=== PATIENT | female | born 1935 | race Caucasian/White ===

== ENCOUNTER 2023-10-23 11:03 | Inpatient (IN) | payer OTHER, SELFPAY ==
[2023-10-23] VITALS (13 sets, daily range): BP systolic 115–177; BP diastolic 74–112; BMI 25.1
[2023-10-23 09:00] LABS: % Basophils 0.5 % (0-2); % Eosinophils 2.8 % (0-6); % Immature Granulocytes 0.8 % (0-0.5); % Lymphocytes 18.7 % (20.5-51.1); % Monocytes 7.2 % (1.7-9.3); Absolute Basophils 0.1 10^3/uL (0-0.2); Absolute Eosinophils 0.3 10^3/uL (0-0.7); Absolute Immature Granulocytes 0.1 10^3/uL (0-0.05); Absolute Lymphocytes 1.8 10^3/uL (1.2-3.4); Absolute Monocytes 0.7 10^3/uL (0.1-0.6); Absolute Neutrophils 6.9 10^3/uL (1.4-6.5); Hemoglobin 11.9 g/dL (12.0-16.0); Mean Corpuscular Hgb 30.7 pg (27.0-31.0); Mean Corpuscular Volume 87.9 fL (81.0-99.0); Mean Platelet Volume 9.4 fL (7.4-10.4); Nucleated Red Blood Cells % 0 %; Platelet Count 254 10^3/uL (130-400); Red Blood Cell Count 3.87 10^6/uL (4.20-5.40); Red Cell Dist. Width 13.2 % (11.5-14.5); White Blood Cell Count 9.9 10^3/uL (4.8-10.8)
--- NOTE | 2023-10-23 09:16 | ED.GENMED ---
History of Present Illness
General
Chief Complaint: Fall
Source: patient and ambulance crew
Exam Limitations: altered mental status
Time Seen by Provider: 10/23/23 08:55
Nursing documentation reviewed up to this point in time: agreed with
Travel History
Have you had any contact with someone who has COVID-19?: No
Do you have any symptoms of coronavirus? Fever > 100 degrees, chills, cough, shortness of breath, sore throat, loss of taste or smell, muscle aches, or headache?: No
History of Present Illness
History of Present Illness:
87-year-old female presents after a fall she has had recurrent falls she lives at a facility apparently had a witnessed fall today in the arms of caregivers no chest pain or shortness of breath does have a headache unsure if she hit her head, also
complaining of back pain which is not a new issue states she fell few days ago and injured her back sounds like she does not get around very well baseline,, she has been using a lot of pain meds she states for her back, looks like she has seizure
disorder hypothyroid GERD
Also complains of some lower extremity edema
Past History
Past History
ED Past Medical History: Other (htn, seizure, herpetic encaphalitis, hypothyroidism)
Social History
Tobacco: Non-smoker
Alcohol: None
Drug: None
Personal:
Living: with family
Employment: Retired
Review of Systems
Review of Systems
All Other Systems: Not applicable
Constitutional: Reports fatigue; Denies fever
EENT: Reports no symptoms
Respiratory: Reports no symptoms
Cardiac: Reports no symptoms
ABD/GI: Reports no symptoms
Musculoskeletal: Reports back pain
Neurological: Reports headache and weakness
Phy Exam
Physical Exam
Physical Exam:
Physical Exam
General: Chronically ill elderly female
Neck: No tongue bite no posterior neck
Heart: Regular
Lungs: no acute respiratory distress. clear bilaterally
Abdomen: Soft nontender
Neuro: Awake alert globally weak
Skin: no rash
Psychiatric: cooperative
Extremities: 1+ edema no pain with range of motion of the hips
Course
Orders/Labs/Results
Orders:
Orders
10/23/23 08:27
Electrocardiogram (*1) Urgent
Reason for Study: Vertigo / Dizzy
10/23/23 08:28
EKG- Treatment ONCE
10/23/23 08:45
Basic Metabolic Panel Urgent
Complete Blood Count/With Diff Urgent
10/23/23 09:05
CT Cervical Spine W/o Iv Contr Urgent
Comment:
Reason For Exam: fall
CT Head W/o Iv Contrast Urgent
Comment:
Reason For Exam: fall
Lumbar Spine, 2 or 3 View [CR Lumbar Spine 2 Or 3 Views] Urgent
Comment:
Reason For Exam: fall
10/23/23 09:07
Comprehensive Metabolic Panel Urgent
Creatine Phosphokinase Urgent
Comment: ADD ON
10/23/23 09:08
Add On- LAB Urgent
Tests Added?: cpk
NT-proBNP Urgent
Comment: ADD ON
Troponin I Urgent
10/23/23 09:22
Add On- LAB Urgent
Tests Added?: pBNP
CR Chest - 2 Views Urgent
Comment:
Reason For Exam: sob
Abnormal Lab Results
10/23/23 10/23/23
08:45 09:08
RBC 3.87 L 10^6/uL
(4.20-5.40)
Hgb 11.9 L g/dL
(12.0-16.0)
Hct 34.0 L %
(37.0-47.0)
Abs Immat Gran (auto) 0.1 H 10^3/uL
(0-0.05)
Absolute Neuts (auto) 6.9 H 10^3/uL
(1.4-6.5)
Absolute Monos (auto) 0.7 H 10^3/uL
(0.1-0.6)
Immature Gran % 0.8 H %
(0-0.5)
Lymphocytes % 18.7 L %
(20.5-51.1)
Sodium 126 L mmol/L
(135-145)
Chloride 96 L mmol/L
(98-107)
Creatinine 0.5 L mg/dL
(0.6-1.0)
Troponin I 0.143 H* ng/ml
10/23/23 08:45
Vital Signs
Initial and Last Documented VS:
Initial Vital Signs
Temp Pulse Resp BP Pulse Ox
98.2 F 90 16 160/99 94
10/23/23 08:23 10/23/23 08:23 10/23/23 08:23 10/23/23 08:23 10/23/23 08:23
Last Documented Vital Signs
Temp Pulse Resp BP Pulse Ox
98.2 F 81 24 171/100 93
10/23/23 08:23 10/23/23 09:30 10/23/23 09:30 10/23/23 09:08 10/23/23 09:30
MDM/Problems Addressed
Differential Diagnosis Includes:
Trip and fall, lumbar compression fracture, electrolyte abnormality UTI anemia rhabdomyolysis deconditioning
MDM/Problems Addressed:
Fall
Chronic conditions affecting care:
Seizure hepatic encephalopathy
Chronic conditions affecting care: Neurological disorder
Acute Exacerbation and/or Progression of Chronic Illness: Neurological disorder
*Radiology
Radiology exam reviewed: preliminary read by ED provider
*Pulse Oximetry
Patient hypoxic: no
*EKG
Interpreted by ED Provider?: Yes
Interpretation: abnormal
Comparison EKG: no comparison EKG present
Heart Rate: 78
Rate: normal
Rhythm: sinus
Ischemia: T-wave inversion (New inferolateral T wave inversion)
*Critical Care Note
Total Time (30-74mins, 75-104mins- exclusive of procedures): 31
Update Note
Update Note:
10 AM labs noted indeterminate troponin in setting of new T wave inversions denies any chest pain suspect she could have some degree of heart failure based on history physical chest x-ray looks like a compression fracture on the lumbar spine
Message sent to cardiology and hospitalist
1015--dw daughter, updated
pt has never seen a cardiology
told she may have pulm HTN
ED Attending Note
-
Portions of this chart may have been created with voice recognition software.� Occasional wrong word or��sound alike� substitutions may have occurred due to the inherent limitations of voice recognition software.
Discharge Plan
Departure
Prescriptions:
No Action
pantoprazole 40 MG tablet,delayed release (DR/EC)
40 mg PO DAILY
levetiracetam 500 MG tablet
1,500 mg PO DAILY
sennosides [senna] 8.6 mg Tablet
17.2 mg PO BID
lidocaine 4 % Adhesive Patch,Medicated
1 patch TOPICAL BID
levetiracetam 500 mg Tablet
2,000 mg PO HS
hydralazine 25 mg Tablet
25 mg PO TID
amlodipine 5 mg Tablet
5 mg PO DAILY
acetaminophen [Tylenol Extra Strength] 500 mg Tablet
1,000 mg PO TID
levothyroxine 25 mcg Tablet
25 mcg PO DAILY
ferrous sulfate 325 mg (65 mg iron) Tablet
325 mg PO DAILY
Referrals:
Tarik Mayo I., DO [Family Provider] -
Interventions
Interventions:
*ED COVID-19 Vaccine History Last Done: 10/23/23 08:24
Discharge Date and Time
Print Language: BURMESE
[2023-10-23 09:18] LABS: Blood Urea Nitrogen 15 mg/dl (7-17); Calcium 9.1 mg/dl (8.4-10.2); Carbon Dioxide 23 mmol/L (22-30); Chloride 96 mmol/L (98-107); Glucose 96 mg/dl (70-99); Sodium 126 mmol/L (135-145); eGFR > 60.00
[2023-10-23 09:49] LABS: Troponin I 0.143 ng/ml
--- NOTE | 2023-10-23 10:10 | HPS.HSE ---
Addendum entered and electronically signed by Noah Sykes MD 10/23/23 18:02:
Abnormal echo r side. Could be explained by ILD but in light of sob decrease mobility and elevated trop will obtain CTA chest r/o PE.
Addendum entered and electronically signed by Noah Sykes MD 10/23/23 11:44:
Correction in the HPI it should read Patient 87 years old female.
Original Note:
Family Physician
-
Family Physician: Tarik Mayo
Chief Complaint
-
Fall
History of Present Illness
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 I spoke with daughter at bedside
and she fills me with most of the information as well. Patient had a witnessed fall today and caregiver was closed by. She had a fall on Thursday and had another fall today. She describes that she was in the edge of the chair today and slid off.
She denies chest pain diaphoresis palpitation syncope near syncope or loss of consciousness. She does have some shortness of breath and it is on chronic over several months but worsening over the last couple weeks. She does have some lower
extremity edema. Denies paroxysmal nocturnal dyspnea or orthopnea. She also has some chronic back pain and it has been getting worse lately and this is currently her main concern today`. Denies radiation of back pain to her legs. Denies fevers
or chills. Denies bladder or urinary incontinence. She has been taking increased amount of pain medications lately. She also denies any tonic-clonic activity, denies tongue biting, denies bowel bladder incontinence. Her typical seizures per her
daughter is usually staring off and not tonic-clonic activity. In the ED, she was found to have elevated troponin 0.143 and EKG that shows new T wave inversions in inferior leads lead III and aVF as well as lateral leads V3 to V6 and normal sinus
rhythm with left anterior fascicular block. No ST elevations. Her sodium was noted to be 126 with a creatinine 0.5. Her hemoglobin 11.9, normal WBC at 9.9, normal platelet count of 254. Chest x-ray, lumbar spine x-ray, CT of the head, CT of the
neck all pending by the time of my evaluation. She was referred to hospitalist for further evaluation.
Medical History
Past Medical History
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
Past Surgical History: Reports None
Social History
Tobacco: Non-smoker
Alcohol: None
Drug: None
Family History
Family History: Not pertinent
Allergies / Home Medications
Allergies reflects when Allergies were last updated in [facility].
Home Medications with original date entered in [facility]
Allergy/Medication List:
Allergies
Allergy/AdvReac Type Severity Reaction Status Date / Time
Iodinated Contrast Media Allergy Intermediate Hives Verified 10/23/23 08:27
erythromycin lactobionate Allergy Mild Rash Verified 10/23/23 08:27
[From Erythrocin]
Penicillins Allergy Rash Verified 10/23/23 08:27
Sulfa (Sulfonamide Allergy Rash Verified 10/23/23 08:27
Antibiotics)
Home Medications
pantoprazole 40 mg tablet,delayed release 40 mg PO DAILY Gastrointestinal issue 05/04/10
levetiracetam 500 mg tablet 1,500 mg PO DAILY Neurological Condition 03/09/19
sennosides 8.6 mg tablet (senna) 17.2 mg PO BID Constipation 06/04/23
acetaminophen 500 mg tablet (Tylenol Extra Strength) 1,000 mg PO TID 10/23/23
amlodipine 5 mg tablet 5 mg PO DAILY 10/23/23
ferrous sulfate 325 mg (65 mg iron) tablet 325 mg PO DAILY 10/23/23
hydralazine 25 mg tablet 25 mg PO TID 10/23/23
levetiracetam 500 mg tablet 2,000 mg PO HS 10/23/23
levothyroxine 25 mcg tablet 25 mcg PO DAILY 10/23/23
lidocaine 4 % topical patch 1 patch topical BID lower back 10/23/23
Review of Systems
-
A 12 point ROS was completed and negative except as noted: Yes
Physical Exam
Vital Signs
Vital Signs
Temp Pulse Resp BP Pulse Ox
98.2 F 81 24 171/100 93
10/23/23 08:23 10/23/23 09:30 10/23/23 09:30 10/23/23 09:08 10/23/23 09:30
Physical exam:
General: Looks chronically ill.
HEENT: Normocephalic, Atraumatic and Moist Mucous Membranes
Respiratory: Few crackles in the bases; Negative Wheezes or Rhonchi
Cardiac: Regular Rhythm and S1/S2
GI: Soft, Nontender and Nondistended
Musculoskeletal: Significant tenderness in the lumbar area midline and flanks, decreased flexion extension as well. No Clubbing, No Cyanosis. Bilateral lower extremity edema
Neuro: Awake, Alert and Oriented
Psych: Calm
Physical Exam
General: Other
Laboratory Results
-
10/23/23 08:45
Laboratory Results
Total Bilirubin Cancelled 10/23/23 08:45
AST Cancelled 10/23/23 08:45
ALT Cancelled 10/23/23 08:45
Alkaline Phosphatase Cancelled 10/23/23 08:45
Troponin I 0.143 ng/ml H* 10/23/23 09:08
Impression/Plan
-
IMPRESSION:
Patient 87 years old female with history of hypertension, seizure disorder, among other medical problems presented to the hospital with recurrent falls. She was found to have elevated troponin most likely elevated troponin due to non-ischemic
myocardial injury but needs to rule out acute coronary syndrome with silent ischemia especially in the setting of new EKG changes compared to prior EKGs. Patient also has worsening hyponatremia. She also has shortness of breath acute on chronic.
She also has back pain acute on chronic. Due to her acute presentation and multiple comorbidities she is at increased risk of morbidity and mortality so she will need to be treated in the hospital for further management and evaluation and monitor
for progress and or toxicity.
PLAN:
Fall and ambulatory dysfunction:
Check orthostatic
CT of the head and neck pending
Keep cardiac monitoring
PT OT eval
human services manager consult
Elevated troponin:
Elevated troponin due to non-ischemic myocardial injury versus acute coronary syndrome versus heart failure related
Trend cardiac enzymes until it peaks
Seen and reviewed and interpreted by myself twelve-lead EKG with normal sinus rhythm at 88 bpm, left anterior fascicular block, T wave inversion in inferior leads lead III and aVF, T wave inversion also in anterior lateral leads V3 to V6. Compared
to prior EKG these T wave inversions are new.
Cardiac monitoring
Plan for echocardiogram
Cardiology consult for further evaluation
Hyponatremia:
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
Her sodium 126 today but she does run low chronic sodium typically in the mid 120s based on review of records
Check urine sodium, urine osmolality, serum osmolarity, TSH, and cortisol levels.
Start with fluid restriction for now <50 ounces/day and reevaluate after rest of the workup.
Repeat sodium this afternoon and if stable then tomorrow, otherwise more often if the opposite
Monitor sodium closely
Shortness of breath-Concerns for acute congestive heart failure, unknown type:
BNP elevated at 6280
Per family she also has some underlying pulmonary fibrosis and that could also explain to some degree her shortness of breath
Lasix 40 mg IV x 1 and reeval if needs more diuretics.
Plan for echocardiogram
Cardiology eval
Monitor strict I/O
Monitor daily weight
Monitor renal function and electrolytes
Fluid restriction
Salt restriction
Heart failure education
Follow up clinical response
Acute on chronic back pain:
Rule out compression fracture
Pain control including Tylenol, lidocaine patch, Dilaudid as needed.
Bowel regimen
X-ray of the back pending
Hypertension, uncontrolled:
Continue home antihypertensives including amlodipine 5 mg daily hydralazine 25 mg 3 times daily
Suspect pain will exacerbate her blood pressure so we will give Labetalol x1 now and then add IV hydralazine as needed
Monitor blood pressure and adjust medications accordingly
Anemia:
Appears to be at baseline with hemoglobin 11.9 today
Seizures:
Continue AED, levetiracetam home doses
Seizures precaution
Hypothyroidism:
Continue home doses of thyroid medications, levothyroxine 25 mcg p.o.
Update TSH
GERD:
Continue PPI orally
DVT prophylaxis:
Lovenox 40 mg SQ daily
CODE STATUS:
DNR. Confirmed with daughter at bedside and she will bring a copy of her living will down the road.
Total time spent on today's encounter was 75 minutes which included time spent in counseling the patient/family regarding diagnosis and treatment plan as listed above, goals of care, and symptom management. Case was discussed with nursing staff,
specialists, and care coordinators/case management. All labs and imaging personally reviewed by me. Remainder the time spent in detailed review of previous records, lab data, imaging, and other medical provider documentation.
[2023-10-23] MEDS: LOW STRENGTH ASPIRIN 324 MG PO (10:33)
[2023-10-23] MEDS: TYLENOL 650 MG PO (10:33)
--- NOTE | 2023-10-23 10:42 | EDRN ---
Dr. Sykes in room w/ pt at this time.
[2023-10-23 10:54] LABS: NT-proBNP 6280 pg/ml
[2023-10-23 11:11] LABS: ALT (SGPT) 18 U/L (0-35); AST (SGOT) 29 U/L (14-36); Albumin 4.2 g/dl (3.5-5.0); Alkaline Phosphatase 75 U/L (38-126); Blood Urea Nitrogen 14 mg/dl (7-17); Carbon Dioxide 22 mmol/L (22-30); Chloride 97 mmol/L (98-107); Creatine Phosphokinase 84 U/L (30-135); Glucose 100 mg/dl (70-99); Potassium 4.5 mmol/L (3.5-5.1); Sodium 126 mmol/L (135-145); Total Bilirubin 0.7 mg/dl (0.2-1.3); Total Protein 6.7 g/dl (6.3-8.2); eGFR > 60.00
--- NOTE | 2023-10-23 11:26 | CON.CAR ---
Addendum entered and electronically signed by Nacho Denton MD 10/23/23 15:02:
I saw and examined the patient.
The BAG MENDER's note was reviewed and I agree with the note.
87-year-old woman who resides at [facility] who has a history of pulmonary fibrosis, hypertension, seizures who slid off her chair and sustained a fall. ECG has some nonspecific T wave abnormality in addition initial troponin was mildly elevated at
0.14. Patient without complaints of chest pain no complaints of increased shortness of breath. Patient clearly reports that she slid off the chair without syncope. Currently in no distress. Follow-up troponin is trending down. Patient
significantly hypertensive on presentation this is now improved. Exact cause of troponin elevation not clear. May be nonischemic myocardial injury in the setting of severe hypertension.
-Monitor on telemetry
-Serial troponins
-Echo.
-Continue monitoring and treatment of hypertension. Blood pressure significantly improved compared to initial presentation
Original Note:
Consultation
Consultation Request
Date/Time Consultation Requested: 10/23/23 11:15a
Date/Time Consultation Performed: 10/23/23 11:30a
Requesting Provider: Dr. Sykes
Performing Provider: KWAKU Layton for Dr. Denton
Reason for Consultation: abnormal EKG/troponin
Medical History
-
Chief Complaint: fall
History of Present Illness:
Mrs. Al is an 87 yo female with HTN, seizures, hypothyroidism, hyponatremia, GERD, and pulmonary fibrosis, who presents to the ER after a fall witnessed by a staff member at the [facility]. She denies any cardiac symptoms prior to the fall.
She claims she was sitting on the arm of the chair and it 'wasn't big enough for me'm so she slid off/fell to the ground. Patient's daughter Lorie is at the bedside as well and states last hospitalization she was diagnosed with severe pulmonary
fibrosis (new) and they have not yet seen pulmonary as an outpatient. She has been c/o worsen SOB for months and noticed LE edema yesterday at routine PCP visit. She is admitted to the hospitalist service and we are consulted for abn EKG with new
T wave inversions lateral leads V3-V6, aVF in NSR and LAFB. Troponin 0.143, she denies any chest pain or SOB at rest. Her complaint now is back pain.
Past Medical History
Past Medical History: Other (as above)
Past Surgical History: None
Social History
Tobacco: Non-Smoker
Alcohol: None
Personal:
Living: Assisted
Employment: Retired
Family History
Family History: Reviewed & Not Pertinent
Allergies / Home Medications
Allergy/AdvReac Type Severity Reaction Status Date / Time
Iodinated Contrast Media Allergy Intermediate Hives Verified 10/23/23 08:27
erythromycin lactobionate Allergy Mild Rash Verified 10/23/23 08:27
[From Erythrocin]
Penicillins Allergy Rash Verified 10/23/23 08:27
Sulfa (Sulfonamide Allergy Rash Verified 10/23/23 08:27
Antibiotics)
�Medication �Instructions �Recorded �Confirmed �Type
pantoprazole 40 mg tablet,delayed 40 mg PO DAILY Gastrointestinal 05/04/10 10/23/23 History
release issue
levetiracetam 500 mg tablet 1,500 mg PO DAILY Neurological 03/09/19 10/23/23 History
Condition
sennosides 8.6 mg tablet (senna) 17.2 mg PO BID Constipation 06/04/23 10/23/23 History
acetaminophen 500 mg tablet 1,000 mg PO TID Pain 10/23/23 10/23/23 History
(Tylenol Extra Strength)
amlodipine 5 mg tablet 5 mg PO DAILY Blood Pressure 10/23/23 10/23/23 History
ferrous sulfate 325 mg (65 mg 325 mg PO DAILY Supplement 10/23/23 10/23/23 History
iron) tablet
hydralazine 25 mg tablet 25 mg PO TID Blood Pressure 10/23/23 10/23/23 History
levetiracetam 500 mg tablet 2,000 mg PO HS Seizures 10/23/23 10/23/23 History
levothyroxine 25 mcg tablet 25 mcg PO DAILY Thyroid 10/23/23 10/23/23 History
lidocaine 4 % topical patch 1 patch topical BID lower back pain 10/23/23 10/23/23 History
Review of Systems
-
History Source: Patient
All other systems: Negative unless noted
Physical Exam
Vital Signs
Temp Pulse Resp BP Pulse Ox
98.2 F 81 24 171/100 93
10/23/23 08:23 10/23/23 09:30 10/23/23 09:30 10/23/23 09:08 10/23/23 09:30
Lab Results
10/23/23 08:45
Troponin I 0.143 ng/ml H* 10/23/23 09:08
Jru-O-Vbuxtaremfs Pept 6280 pg/ml 10/23/23 09:08
Physical Exam
General: Other (elderly, frail)
HEENT: Normocephalic
Respiratory: Clear (diminished bases) and Non Labored Respirations
Cardiac: S1/S2, Regular Rhythm and Peripheral Edema (trace b/l )
Breast: Deferred by me
GI: Soft, Non Tender, Non Distended and Normal Bowel Sounds
Rectal: Deferred by Provider
Genito-urinary: No Costovertebral Tender
Musculoskeletal: No Clubbing, No Cyanosis and No Edema
Skin: Warm and Dry
Neuro: AO x 3
Psych: Calm
Impression / Plan
-
Non-ischemic myocardial injury - acute in the setting of fall and hypertensive urgency.
- initial troponin 0.143, trend to peak.
- denies chest pain.
- abnormal EKG with T wave inversions V3-V6 and aVL.
- check echo.
HTN - elevated on arrival.
- continue Hydralazine and titrate as needed.
Fall - recurrent.
- daughter Lorei states she fell last week also.
Pulmonary fibrosis - severe according to daughter Lorie, this is a new diagnosis from recent hospitalization.
- mild CHF as well, check echo for etiology.
Seizures - stable on meds, continue.
Hyponatremia - acute on chronic.
- per primary.
Data Reviewed
-
EKG: Tracing Personally Visualized and interpreted (NSR new T wave inversions lateral leads V3-V6, aVF, and LAFB)
Radiology: Image Personally Visualized and interpreted
Labs: Labs Reviewed by me
Old Records: Reviewed
[2023-10-23] MEDS: LIDOCAINE 4% PATCH 1 PATCH TOPICAL (12:42)
[2023-10-23] MEDS: DILAUDID 0.25 MG IV (12:43)
[2023-10-23] MEDS: LASIX 40 MG IV (12:43)
[2023-10-23] MEDS: SENOKOT-S 1 TABLET PO ×2 (12:43→22:33)
[2023-10-23] MEDS: TRANDATE 10 MG IV (12:44)
[2023-10-23 13:02] LABS: Troponin I 0.107 ng/ml
[2023-10-23 13:12] LABS: Osmolality Serum 263 mOsm/kg (275-300)
[2023-10-23 15:53] LABS: Blood Urea Nitrogen 12 mg/dl (7-17); Calcium 8.7 mg/dl (8.4-10.2); Carbon Dioxide 18 mmol/L (22-30); Chloride 97 mmol/L (98-107); Estimated Creatinine Clearance 55 ml/min; Glucose 120 mg/dl (70-99); Potassium 3.6 mmol/L (3.5-5.1); Sodium 125 mmol/L (135-145); eGFR > 60.00
[2023-10-23] MEDS: FEOSOL PO (18:26)
[2023-10-23] MEDS: NORVASC PO (18:26)
[2023-10-23] MEDS: KEPPRA PO (18:26)
[2023-10-23] MEDS: PROTONIX PO (18:27)
[2023-10-23] MEDS: APRESOLINE 25 MG PO ×2 (18:27→22:33)
[2023-10-23] MEDS: LOVENOX 40 MG SC (18:27)
[2023-10-23] MEDS: SYNTHROID PO (18:27)
[2023-10-23 20:25] LABS: Troponin I 0.086 ng/ml
[2023-10-23] MEDS: KEPPRA 2000 MG PO (22:35)
[2023-10-23] MEDS: BENADRYL 50 MG IV (22:47)
[2023-10-23] MEDS: SOLU-CORTEF 200 MG IV (22:48)
[2023-10-24] VITALS (11 sets, daily range): BP systolic 114–160; BP diastolic 69–107; PULSE 84–105; O2SAT 93; BMI 22.7
[2023-10-24 04:38] LABS: Blood Urea Nitrogen 15 mg/dl (7-17); Carbon Dioxide 18 mmol/L (22-30); Chloride 97 mmol/L (98-107); Estimated Creatinine Clearance 55 ml/min; Glucose 132 mg/dl (70-99); Sodium 126 mmol/L (135-145); eGFR > 60.00
[2023-10-24 04:44] LABS: Troponin I 0.055 ng/ml
[2023-10-24 05:09] LABS: TSH Reflex To Free T4 1.59 uIU/ml (0.47-4.68)
[2023-10-24 05:51] LABS: Cortisol, Random > 123.0 ug/dl
[2023-10-24] MEDS: SYNTHROID 25 MCG PO (06:16)
[2023-10-24] MEDS: TYLENOL 650 MG PO ×2 (06:20→22:03)
[2023-10-24 08:30] LABS: Hematocrit 34.1 % (37.0-47.0); Hemoglobin 12.1 g/dL (12.0-16.0); Mean Corp Hgb Conc. 35.5 g/dL (33.0-37.0); Mean Corpuscular Hgb 31.2 pg (27.0-31.0); Mean Corpuscular Volume 87.9 fL (81.0-99.0); Mean Platelet Volume 9.8 fL (7.4-10.4); Platelet Count 262 10^3/uL (130-400); Red Blood Cell Count 3.88 10^6/uL (4.20-5.40); Red Cell Dist. Width 13.1 % (11.5-14.5); White Blood Cell Count 9.2 10^3/uL (4.8-10.8)
[2023-10-24] MEDS: SENOKOT-S 1 TABLET PO ×2 (08:45→21:59)
[2023-10-24] MEDS: PROTONIX 40 MG PO (08:45)
[2023-10-24] MEDS: APRESOLINE 25 MG PO ×3 (08:45→21:59)
[2023-10-24] MEDS: KEPPRA 1500 MG PO (08:46)
[2023-10-24] MEDS: NORVASC 5 MG PO (08:46)
[2023-10-24] MEDS: FEOSOL 325 MG PO (08:46)
[2023-10-24] MEDS: LIDOCAINE 4% PATCH 1 PATCH TOPICAL (08:47)
--- NOTE | 2023-10-24 09:47 | W.PN.HOSP.TC ---
Addendum entered and electronically signed by Rickie David DO 10/24/23 11:18:
Informed by nurse that patient's pulse ox dropped to 85% on room air with ambulation with physical therapy, improved to 92% within 1 minute of resting.
Original Note:
Today's Communication/Plan
-
PT/OT
Urine studies
Fluid restriction
Compression stockings
Assessment / Plan
Assessment / Plan
Gen-AAOx3, NAD
HEENT-NC, AT, anicteric, clear oral mm
Neck-supple
CV-reg, no M, +S1/S2
Lungs-clear B/L
Abd-soft, NT, ND
Ext-no edema
Musculoskeletal-no cyanosis, clubbing
Skin-warm and dry
Neuro-grossly non-focal
Psych-calm, cooperative
Acute hypoxic respiratory insufficiency - oxygenation stable on room air. Etiology of shortness of breath unclear, but CT chest ruled out pulmonary embolism. Did show dilated main pulmonary outflow tract suggestive of pulmonary artery
hypertension. UIP pattern of interstitial fibrosis noted. Question of mild interstitial edema. Stable diffuse ectasia of the thoracic aorta.
Echocardiogram shows LVEF 65 to 70%, no regional wall motion abnormalities, enlarged RV size with moderately reduced RV systolic function, mild to moderate MR, mild AR, mild to moderate TR. 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
Suspect valvular heart disease may be contributing to at least some of her shortness of breath. Pulmonary hypertension also contributing. Currently not requiring oxygen. Check ambulatory pulse ox on room air with physical therapy.
Recurrent falls/ambulatory dysfunction -likely multifactorial etiology for falling including deconditioning, frailty, orthostasis, etc.
Await PT/OT.
Orthostatic hypotension -compression stockings ordered.
Multiple vertebral compression fractures - suspect due to falls and underlying osteoporosis. T9 compression deformity noted on CT scan. L1 and L2 chronic compression deformities noted on x-ray.
Essential hypertension with hypertensive urgency -blood pressure improving now.
Troponin elevation -suspect acute nonischemic myocardial injury due to uncontrolled blood pressure. Troponins trended down. Echocardiogram without wall motion abnormality. Does show findings of pulmonary hypertension. Cardiology input noted.
Chronic hyponatremia -unclear etiology. Sodium appears to usually run in the 120 range. She is asymptomatic from a hyponatremia standpoint. TSH normal. Cortisol likely falsely elevated due to IV hydrocortisone administration in preparation for
IV contrast. Check urine studies. Fluid restrict at 40 ounces daily.
Seizure disorder -continue meds.
Hypothyroidism - continue Synthroid.
History of herpes encephalitis
GERD
DNR
Dispo -she lives in [place]. Disposition will depend on her progress with PT and OT.
Anticipated Discharge: 24 - 48 hours
Subjective/Interval History
-
Date of Service: October 24, 2023
Patient seen and examined. Eating breakfast. Complaining of feeling cold.
Objective Data
-
Labs:
Laboratory Results
10/24/23 10/24/23
04:06 07:32
WBC 9.2
Hgb 12.1
Hct 34.1 L
Plt Count 262
Sodium 126 L
Potassium 4.0
Chloride 97 L
Carbon Dioxide 18 L
BUN 15
Creatinine 0.5 L
Glucose 132 H
Calcium 9.0
Vital Signs:
Vital Signs
Temp Pulse Resp BP Pulse Ox
98 F 84 22 132/90 96
10/24/23 08:38 10/24/23 08:46 10/24/23 08:38 10/24/23 08:46 10/24/23 08:38
Review of Systems
-
History Source: Patient
All other systems: Reviewed and negative
--- NOTE | 2023-10-24 11:12 | PTCARENOTE ---
Patient dyspneic on exertion to BR, 85% on RA. Recovered to 92% with in 1 minute. Made physician aware.
[2023-10-24] MEDS: LASIX 40 MG IV (11:46)
[2023-10-24] MEDS: MIRALAX 17 GRAMS PO (11:46)
--- NOTE | 2023-10-24 12:08 | CM ---
Addendum entered by Thom Montague 10/24/23 14:37:
PT and OT evaluations noted - SNF level of care recommended.
CM discussed it with pt and her daughter and [facility] preferred. A referral to [facility] made.
D/C plan: [facility].
Original Note:
CM following re: discharge planning.
Reviewed pt's chart, met with pt and spoke to pt's daughter Marylou .
Pt is an 87 year old female, admitted with primary dx of Acute hypoxic respiratory insufficiency.
pt reports she lives at [facility], has supportive daughter and 4 sons, ambulates with a walker at baseline. Pt reports she was in a few SNFs in the past, known to [facility].
PT and OT will evaluate the pt to determine a level of care at discharge.
PCP: Tarik Mayo.
Pharmacy: [facility]
D/C plan; return maged to her living arrangements at [facility] with [facility]. PT and OT will evaluate
CM will follow with discharge plan updates as hospitalization progresses
[2023-10-24 13:06] LABS: Osmolality Urine 478 mOsm/kg (300-900)
[2023-10-24 13:12] LABS: Urine Sodium 72 mmol/L (30-90)
--- NOTE | 2023-10-24 13:22 | W.PN.CD ---
Today's Communication / Plan
-
Patient appears hemodynamically stable. Respiratory status appears stable. Fine crackles on exam which are likely related to underlying pulmonary fibrosis
Interstitial edema cannot be excluded on chest x-ray patient has received additional diuretics from hospitalist. Continue to assess response. No additional testing or changes in medical therapy recommended at this time
Impression / Plan
-
Non-ischemic myocardial injury - acute in the setting of fall and hypertensive urgency.
- initial troponin 0.143, trend to peak.
- denies chest pain.
- abnormal EKG with T wave inversions V3-V6 and aVL.
-Echo with preserved left ventricular function. Some suggestion of RV dilation. Which may be related to underlying pulmonary disease/pulmonary fibrosis.
HTN - elevated on arrival. Now appears stable. Continue current therapy.
Fall - recurrent.
- daughter Lorie states she fell last week also.
Pulmonary fibrosis - severe according to daughter Lorie, this is a new diagnosis from recent hospitalization.
- mild CHF as well, check echo for etiology.
Seizures - stable on meds, continue.
Hyponatremia - acute on chronic.
- per primary.
Physical Exam
Vital Signs/Labs
Vital Signs
Temp Pulse Resp BP Pulse Ox
97.5 F 94 20 114/72 95
10/24/23 12:45 10/24/23 12:45 10/24/23 12:45 10/24/23 12:45 10/24/23 12:45
10/23/23 10/24/23 10/25/23
06:59 06:59 06:59
Actual Weight 58.117 kg
10/24/23 07:32
10/24/23 04:06
10/23/23
09:08
Xhq-V-Hyvyaukpdxz Pept 6280
LAB Results
10/23/23 10/23/23 10/23/23
09:08 12:24 19:43
Troponin I 0.143 H* 0.107 H* D 0.086 H*
10/24/23
04:06
Troponin I 0.055 H*
Physical Exam
Constitutional: No acute distress and Other (Comfortable in chair.)
Cardiovascular: Rhythm & rate is regular
Respiratory: Other (Fine crackles at bases)
GI: Soft and Non tender
Neuro/Psych: Alert
Data Reviewed
-
Date of Service: October 24, 2023
Medical Decision Making: Reviewed Test Results
Echo: Report Reviewed by me
X-Ray/CT/US/MRI/NUC/PET: Report Reviewed by me
Labs: Labs Reviewed by me
--- NOTE | 2023-10-24 14:54 | PTCARENOTE ---
Patient with intermittent bouts of tachycardia 140-150. Patient is asymptomatic, just sitting in chair. Physician made aware.
[2023-10-24] MEDS: LOVENOX 40 MG SC (17:03)
[2023-10-24] MEDS: REFRESH EYE DROPS (PF) 1 DROPS OPHTH (17:43)
[2023-10-24] MEDS: KEPPRA 2000 MG PO (22:00)
[2023-10-25] VITALS (7 sets, daily range): BP systolic 82–156; BP diastolic 52–99; PULSE 77–104; BMI 23.1
[2023-10-25] MEDS: SYNTHROID 25 MCG PO (05:58)
[2023-10-25] MEDS: TYLENOL 650 MG PO ×3 (06:15→21:27)
[2023-10-25 07:33] LABS: Blood Urea Nitrogen 21 mg/dl (7-17); Calcium 9.4 mg/dl (8.4-10.2); Carbon Dioxide 21 mmol/L (22-30); Chloride 94 mmol/L (98-107); Estimated Creatinine Clearance 55 ml/min; Glucose 95 mg/dl (70-99); Potassium 4.1 mmol/L (3.5-5.1); Sodium 127 mmol/L (135-145); eGFR > 60.00
[2023-10-25] MEDS: APRESOLINE 25 MG PO ×2 (08:43→16:20)
[2023-10-25] MEDS: FEOSOL 325 MG PO (08:43)
[2023-10-25] MEDS: NORVASC 5 MG PO (08:43)
[2023-10-25] MEDS: PROTONIX 40 MG PO (08:43)
[2023-10-25] MEDS: SENOKOT-S 1 TABLET PO ×2 (08:43→21:27)
[2023-10-25] MEDS: LIDOCAINE 4% PATCH 1 PATCH TOPICAL (08:44)
[2023-10-25] MEDS: KEPPRA 1500 MG PO (08:44)
--- NOTE | 2023-10-25 13:06 | W.PN.HOSP.TC ---
Today's Communication/Plan
-
Bowel regimen
Fluid restriction
Continue PT
Assessment / Plan
Assessment / Plan
Gen-AAOx3, NAD
HEENT-NC, AT, anicteric, clear oral mm
Neck-supple
CV-reg, no M, +S1/S2
Lungs-clear B/L
Abd-soft, NT, ND
Ext-no edema
Musculoskeletal-no cyanosis, clubbing
Skin-warm and dry
Neuro-grossly non-focal
Psych-calm, cooperative
Acute hypoxic respiratory insufficiency - oxygenation stable on room air. Etiology of shortness of breath possibly due to interstitial lung disease. CT chest showed dilated main pulmonary outflow tract suggestive of pulmonary artery hypertension.
UIP pattern of interstitial fibrosis noted. Question of mild interstitial edema. Stable diffuse ectasia of the thoracic aorta.
Echocardiogram shows LVEF 65 to 70%, no regional wall motion abnormalities, enlarged RV size with moderately reduced RV systolic function, mild to moderate MR, mild AR, mild to moderate TR. 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 BNP 6280. She
received Lasix on Thursday and Thursday. Hold further Lasix as I am not convinced she has heart failure.
Suspect valvular heart disease may be contributing to at least some of her shortness of breath. Pulmonary hypertension also contributing.
Pulse ox dropped to 85% on room air with ambulation yesterday, improved to 92% within 1 minute. Anticipate she will need oxygen on discharge.
Recurrent falls/ambulatory dysfunction -likely multifactorial etiology for falling including deconditioning, frailty, orthostasis, etc.
Orthostatic hypotension -compression stockings ordered.
Multiple vertebral compression fractures - suspect due to falls and underlying osteoporosis. T9 compression deformity noted on CT scan. L1 and L2 chronic compression deformities noted on x-ray.
Essential hypertension with hypertensive urgency -blood pressure improving now.
Troponin elevation -suspect acute nonischemic myocardial injury due to uncontrolled blood pressure. Troponins trended down. Echocardiogram without wall motion abnormality. Does show findings of pulmonary hypertension. Cardiology input noted.
Chronic hyponatremia -unclear etiology. Sodium appears to usually run in the 120 range. She is asymptomatic from a hyponatremia standpoint. TSH normal. Cortisol likely falsely elevated due to IV hydrocortisone administration in preparation for
IV contrast. Check urine studies. Fluid restrict at 40 ounces daily.
Chronic constipation -change bowel meds to standing orders. No bowel movement so far in the hospital.
Seizure disorder -continue meds.
Hypothyroidism - continue Synthroid.
History of herpes encephalitis
GERD
DNR
Dispo -she lives in [place] but will need to go to SNF. Anticipate [facility] once we have insurance approval. Informed case management. Likely can be discharged on Thursday if bed available in rehab.
Updated daughter on the phone. All questions answered.
Anticipated Discharge: Within 24 hours
Subjective/Interval History
-
Date of Service: October 25, 2023
Patient seen and examined. No complaints. Eating lunch.
Objective Data
-
Labs:
Laboratory Results
10/25/23
06:17
Sodium 127 L
Potassium 4.1
Chloride 94 L
Carbon Dioxide 21 L
BUN 21 H
Creatinine 0.6
Glucose 95
Calcium 9.4
Vital Signs:
Vital Signs
Temp Pulse Resp BP Pulse Ox
98.0 F 92 16 134/89 96
10/25/23 11:46 10/25/23 11:46 10/25/23 11:46 10/25/23 11:46 10/25/23 11:46
I&O
10/24/23 10/25/23 10/26/23
06:59 06:59 06:59
Intake Total 620 / 620 270 / 270
Output Total 150 / 150
Balance 470 / 470 270 / 270
Review of Systems
-
History Source: Patient
All other systems: Reviewed and negative
--- NOTE | 2023-10-25 13:52 | W.PN.CD ---
Today's Communication / Plan
-
Although proBNP is elevated patient does not appear to have clear evidence of volume overload. Difficulty use lung exam in this patient who has pulmonary fibrosis. Respiratory status is stable appears comfortable seated in chair and does not
appear to have significant edema. Would keep I's and O's even at this point
no addtional testing at this time
call if addtional assistance required
Impression / Plan
-
Non-ischemic myocardial injury - acute in the setting of fall and hypertensive urgency.
- initial troponin 0.143, trend to peak.
- denies chest pain.
- abnormal EKG with T wave inversions V3-V6 and aVL.
-Echo with preserved left ventricular function. Some suggestion of RV dilation. Which may be related to underlying pulmonary disease/pulmonary fibrosis.
HTN - elevated on arrival. Now appears stable. Continue current therapy.
Fall - recurrent.
- daughter Lorie states she fell last week also.
Pulmonary fibrosis - severe according to daughter Lorie, this is a new diagnosis from recent hospitalization.
- Although proBNP is elevated patient does not appear to have clear evidence of volume overload. Difficulty use lung exam in this patient who has pulmonary fibrosis. Respiratory status is stable appears comfortable seated in chair and does not
appear to have significant edema. Would keep I's and O's even at this point
Seizures - stable on meds, continue.
Hyponatremia - acute on chronic.
- per primary.
Physical Exam
Vital Signs/Labs
Vital Signs
Temp Pulse Resp BP Pulse Ox
98.0 F 92 16 134/89 96
10/25/23 11:46 10/25/23 11:46 10/25/23 11:46 10/25/23 11:46 10/25/23 11:46
10/24/23 10/25/23 10/26/23
06:59 06:59 06:59
Actual Weight 58.117 kg 59.052 kg
10/24/23 07:32
10/25/23 06:17
10/23/23
09:08
Xox-E-Qfldaflaeri Pept 6280
LAB Results
10/23/23 10/23/23 10/23/23
09:08 12:24 19:43
Troponin I 0.143 H* 0.107 H* D 0.086 H*
10/24/23
04:06
Troponin I 0.055 H*
Physical Exam
Constitutional: No acute distress
Cardiovascular: Rhythm & rate is regular
Respiratory: Other (Few fine crackles at bases no wheezes or rhonchi. Patient breathing comfortably in chair on room air)
GI: Soft
Neuro/Psych: Alert
Data Reviewed
-
Date of Service: October 25, 2023
EKG: Report Reviewed by me
[2023-10-25] MEDS: DULCOLAX 10 MG RECTAL (13:57)
[2023-10-25] MEDS: MIRALAX 17 GRAMS PO (13:58)
[2023-10-25] MEDS: ULTRAM 50 MG PO (16:19)
[2023-10-25] MEDS: LOVENOX 40 MG SC (17:11)
[2023-10-25] MEDS: APRESOLINE PO (21:25)
[2023-10-25] MEDS: KEPPRA 2000 MG PO (21:27)
[2023-10-26] VITALS (8 sets, daily range): BP systolic 93–181; BP diastolic 60–113; PULSE 88–100; BMI 23.3
[2023-10-26] MEDS: SYNTHROID 25 MCG PO (05:16)
--- NOTE | 2023-10-26 08:49 | W.PN.HOSP.TC ---
Today's Communication/Plan
-
Monitor sodium. Nephrology eval.
Assessment / Plan
Assessment / Plan
Gen-AAOx3, NAD
HEENT-NC, AT, anicteric, clear oral mm
Neck-supple
CV-reg, no M, +S1/S2
Lungs-clear B/L
Abd-soft, NT, ND
Ext-no edema
Musculoskeletal-no cyanosis, clubbing
Skin-warm and dry
Neuro-grossly non-focal
Psych-calm, cooperative
A/P:
Acute hypoxic respiratory insufficiency - oxygenation stable on room air. Etiology of shortness of breath possibly due to interstitial lung disease. CT chest showed dilated main pulmonary outflow tract suggestive of pulmonary artery hypertension.
UIP pattern of interstitial fibrosis noted. Question of mild interstitial edema. Stable diffuse ectasia of the thoracic aorta.
Echocardiogram shows LVEF 65 to 70%, no regional wall motion abnormalities, enlarged RV size with moderately reduced RV systolic function, mild to moderate MR, mild AR, mild to moderate TR. 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 BNP 6280. She
received Lasix on Thursday and Thursday. Hold further Lasix as I am not convinced she has heart failure.
Suspect valvular heart disease may be contributing to at least some of her shortness of breath. Pulmonary hypertension also contributing.
Pulse ox dropped to 85% on room air with ambulation yesterday, improved to 92% within 1 minute. Anticipate she will need oxygen on discharge. Daughter asked about pulmonary evaluation and we went over possible outpatient or inpatient but
ultimately decided to have them evaluate her since she has not seen any urban gardening specialist since possible diagnosis.
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 Sodium appears to usually run in the 120 range. She is asymptomatic from a hyponatremia standpoint. TSH normal. Cortisol
likely falsely elevated due to IV hydrocortisone administration in preparation for IV contrast. Check urine studies. Fluid restrict at 40 ounces daily. Today sodium got worse so we will request nephrology evaluation. Might need to start
diuretics or consider [place]. Not ready for discharge due to worsening sodium.
Recurrent falls/ambulatory dysfunction -likely multifactorial etiology for falling including deconditioning, frailty, orthostasis, etc.
Orthostatic hypotension -compression stockings ordered. Continue to check orthostatics.
Multiple vertebral compression fractures - suspect due to falls and underlying osteoporosis. T9 compression deformity noted on CT scan. L1 and L2 chronic compression deformities noted on x-ray.
Essential hypertension with hypertensive urgency -blood pressure improving now. Would allow permissive hypertension if it comes to that point due to orthostatic.
Troponin elevation -suspect acute nonischemic myocardial injury due to uncontrolled blood pressure. Troponins trended down. Echocardiogram without wall motion abnormality. Does show findings of pulmonary hypertension. Cardiology input noted.
Chronic constipation -change bowel meds to standing orders. No bowel movement so far in the hospital.
Seizure disorder -continue meds.
Hypothyroidism - continue Synthroid.
History of herpes encephalitis
GERD
DNR
Dispo -she lives in [place] but will need to go to SNF. Anticipate [facility] once we have insurance approval. Informed case management.
Updated daughter on the phone. All questions answered.
Total time spent on today's encounter was 52 minutes which included time spent in counseling the patient/family regarding diagnosis and treatment plan as listed above, goals of care, and symptom management. Case was discussed with nursing staff,
specialists, and care coordinators/case management. All labs and imaging personally reviewed by me. Remainder the time spent in detailed review of previous records, lab data, imaging, and other medical provider documentation.
Anticipated Discharge: 24 - 48 hours
Subjective/Interval History
-
Date of Service: October 26, 2023
Patient complains of dizziness. Denies worsening shortness of breath or chest pain.
Objective Data
-
Labs:
Laboratory Results
10/26/23
08:33
Sodium Pending
Potassium Pending
Chloride Pending
Carbon Dioxide Pending
BUN Pending
Creatinine Pending
Glucose Pending
Calcium Pending
Vital Signs:
Vital Signs
Temp Pulse Resp BP Pulse Ox
97.8 F 80 16 146/101 96
10/26/23 07:54 10/26/23 07:54 10/26/23 07:54 10/26/23 07:54 10/26/23 07:54
I&O
10/25/23 10/26/23 10/27/23
06:59 06:59 06:59
Intake Total 620 / 620 770 / 770
Output Total 150 / 150
Balance 470 / 470 770 / 770
Review of Systems
-
All other systems: Reviewed and negative
[2023-10-26] MEDS: SENOKOT-S 1 TABLET PO ×2 (09:31→20:53)
[2023-10-26] MEDS: MIRALAX 17 GRAMS PO (09:31)
[2023-10-26] MEDS: KEPPRA 1500 MG PO (09:31)
[2023-10-26] MEDS: PROTONIX 40 MG PO (09:31)
[2023-10-26] MEDS: FEOSOL 325 MG PO (09:32)
[2023-10-26] MEDS: LIDOCAINE 4% PATCH 1 PATCH TOPICAL (09:32)
[2023-10-26] MEDS: APRESOLINE 25 MG PO ×3 (09:32→23:51)
[2023-10-26] MEDS: NORVASC 5 MG PO (09:32)
[2023-10-26 10:03] LABS: Blood Urea Nitrogen 28 mg/dl (7-17); Calcium 9.4 mg/dl (8.4-10.2); Carbon Dioxide 19 mmol/L (22-30); Chloride 93 mmol/L (98-107); Estimated Creatinine Clearance 47 ml/min; Glucose 93 mg/dl (70-99); Potassium 4.2 mmol/L (3.5-5.1); Sodium 123 mmol/L (135-145); eGFR > 60.00
--- NOTE | 2023-10-26 11:31 | PTCARENOTE ---
refused to lay down for full orthostatic vital sign; was only able to obtain sitting and standing
--- NOTE | 2023-10-26 11:36 | CM ---
Patient seen bedside.
OOB in chair with therapy.
Patient was orthostatic with standing today.
Continue to monitor sodium.
Patient would like [facility] when stable, will need insurance auth.
Plan: skilled rehab when medically stable, bed available and auth obtained.
--- NOTE | 2023-10-26 14:01 | CON.PUL ---
Consultation
Consultation Request
Date/Time Consultation Requested: 10/26/2023
Date/Time Consultation Performed: 10/26/2023
Requesting Provider: Dr. Sykes
Performing Provider: Dr. Arcadio Funk
Reason for Consultation: Abnormal CT chest-interstitial lung disease
Medical History
-
History of Present Illness:
87-year-old woman with history of hypertension, seizure disorders, prior herpes encephalitis, chronic hyponatremia, orthostatic hypotension, GERD admitted to the hospital due to a fall.
She was found to have slightly increased troponins upon admission to the emergency room. Sodium down to 126. Initially also found to be increasingly hypertensive.
Cardiology evaluated the patient given increased troponins and proBNP.
Repeat echocardiogram during this admission showed preserved ejection fraction. RV dilatation.
We were consulted due to underlying pulmonary fibrosis which is a new diagnosis for patient during recent hospital stay.
Has not seen pulmonary in the outpatient setting.
Per daughter patient is very limited. Ambulates with a walker. Complains of shortness of breath.
Past Medical History
Past Medical History: Other (See assessment and plan section)
Social History
Tobacco: Non-smoker
Alcohol: None
Drug: None
Living: With Family
Occupational Exposures: Denies
Environmental Exposures: Denies
Family History
Family History: Reviewed & Not Pertinent
Allergies / Home Medications
Allergies
Allergy/AdvReac Type Severity Reaction Status Date / Time
erythromycin lactobionate Allergy Rash Verified 10/23/23 20:05
[From Erythrocin]
Iodinated Contrast Media Allergy Hives Verified 10/23/23 20:05
Penicillins Allergy Rash Verified 10/23/23 08:27
Sulfa (Sulfonamide Allergy Rash Verified 10/23/23 08:27
Antibiotics)
Home Medications
�Medication �Instructions �Recorded �Confirmed �Last Taken �Type
pantoprazole 40 mg tablet,delayed 40 mg PO DAILY Gastrointestinal 05/04/10 10/23/23 06/03/23 History
release issue
levetiracetam 500 mg tablet 1,500 mg PO DAILY Neurological 03/09/19 10/23/23 06/04/23 08:00 History
Condition
sennosides 8.6 mg tablet (senna) 17.2 mg PO BID Constipation 06/04/23 10/23/23 06/04/23 08:00 History
acetaminophen 500 mg tablet 1,000 mg PO TID Pain 10/23/23 10/23/23 Unknown History
(Tylenol Extra Strength)
amlodipine 5 mg tablet 5 mg PO DAILY Blood Pressure 10/23/23 10/23/23 Unknown History
ferrous sulfate 325 mg (65 mg 325 mg PO DAILY Supplement 10/23/23 10/23/23 Unknown History
iron) tablet
hydralazine 25 mg tablet 25 mg PO TID Blood Pressure 10/23/23 10/23/23 Unknown History
levetiracetam 500 mg tablet 2,000 mg PO HS Seizures 10/23/23 10/23/23 Unknown History
levothyroxine 25 mcg tablet 25 mcg PO DAILY Thyroid 10/23/23 10/23/23 Unknown History
lidocaine 4 % topical patch 1 patch topical BID lower back pain 10/23/23 10/23/23 Unknown History
Review of Systems
-
History Source: Patient
All other systems: Negative unless noted
Vitals / Labs / Diagnostic Testing
Vital Signs
Temp Pulse Resp BP Pulse Ox
97.9 F 88 18 123/70 96
10/26/23 11:31 10/26/23 11:31 10/26/23 11:31 10/26/23 11:31 10/26/23 11:31
Lab Data
10/24/23 07:32
10/26/23 08:33
Diagnostic Testing:
Physical Exam
-
HEENT: Normocephalic
Cardiovascular: S1/S2
Respiratory: Rales (Bibasilar)
GI: Soft and Non Distended
Neurology: Awake, Alert, AO x 3 and No Motor Deficits
Skin: Warm
General: Respiratory Distress (n)
Assessment
-
Abnormal CT chest-Interstitial lung disease/pulmonary fibrosis
CT chest 10/24/2023: Reviewed,
Limited by respiratory motion degradation. No filling defect to suggest pulmonary embolism with confidence to the proximal segmental branches. If indicated, further evaluation/follow-up may be considered with repeat angiography.
Stable dilated main pulmonary outflow tract suggesting an element of pulmonary artery hypertension.
UIP pattern of interstitial fibrosis.
The possibility of mild interstitial edema cannot be entirely excluded in the proper clinical setting.
Stable diffuse ectasia of the thoracic aorta.
Interval development of moderate T9 compression deformity.
Pulmonary hypertension: Likely due to underlying lung disease. 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
Doubt pulmonary arterial component.
Conditions present prior admission:
Essential hypertension
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
Hypothyroidism
GERD
History of vasovagal syncope
Prior TIA echocardiogram
Echocardiogram 10/23/2023: Reviewed, showed ejection fraction 65-70%. No regional wall motion abnormalities.
Enlarged right ventricular size. Moderate reduced right ventricular systolic function. Mild to moderate MR. Mild AR. Mild to moderate TR. Estimated pulmonary pressure 40 to 45 mmHg.
Plan recommendations:
CT of the chest reviewed, chronic changes noted, usual interstitial pneumonia pattern.
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
Other differential diagnosis may include connective tissue disease associated ILD, less likely hypersensitivity pneumonitis.
Patient denies any occupational or environmental exposures.
There is no history of medications known to cause pulmonary fibrosis.
-
Pulmonary hypertension may be due to underlying pulmonary disease.
In reviewing prior imaging in 2013, CT abdomen pelvis lung cuts show some degree of pulmonary fibrosis.
Has been progressing over the last 10 years slowly.
-
I recommend home oxygen assessment before discharge
Will need outpatient ILD serology evaluation.
-
Will need to consider Antifibrotic therapy, this will need to be discussed in the outpatient setting.
There is no role for steroids as there is no groundglass opacities on CAT scan.
While in the hospital no additional recommendations.
Home oxygen assessment prior to discharge.
-
Outpatient pulmonary follow-up recommended after discharge.
Dr. Funk updated daughter over the phone 10/26/2023.
--- NOTE | 2023-10-26 16:15 | W.CON.NEPH ---
Consultation
-
Date/Time Consultation Requested: October 26, 2023 11 AM
Date/Time Consultation Performed: October 26, 2023 12 PM
Requesting Provider: Dr. Sykes
Performing Provider: Dr. Wiggins
Reason for Consultation: Hyponatremia
Medical History
-
Chief Complaint: Hyponatremia
History of Present Illness:
This is an 87-year-old female with seizure disorder controlled with Keppra, chronic hyponatremia with sodium levels running around 130 at baseline. She also has orthostatic hypotension on hydralazine 3 times daily. Patient had a witnessed fall as
well as recent falls prior to that. She denies any diaphoresis or palpitations with these episodes. She also reports some mild shortness of breath as well as some mild lower extremity edema. Due to these several issues she was brought to the
emergency room. She was also found to have slightly elevated troponin at the time of admission. Her sodium level initially 126 has dropped to 123 for which we are asked to assist with management of.
Past Medical History
Hypertension, seizure disorder, herpes encephalitis, chronic hyponatremia, hypothyroidism, orthostatic hypotension, GERD
Social History
Tobacco: Non-Smoker
Alcohol: None
Family History
No CKD
Allergies / Home Medications
Allergy/AdvReac Type Severity Reaction Status Date / Time
erythromycin lactobionate Allergy Rash Verified 10/23/23 20:05
[From Erythrocin]
Iodinated Contrast Media Allergy Hives Verified 10/23/23 20:05
Penicillins Allergy Rash Verified 10/23/23 08:27
Sulfa (Sulfonamide Allergy Rash Verified 10/23/23 08:27
Antibiotics)
�Medication �Instructions �Recorded �Confirmed �Type
pantoprazole 40 mg tablet,delayed 40 mg PO DAILY Gastrointestinal 05/04/10 10/23/23 History
release issue
levetiracetam 500 mg tablet 1,500 mg PO DAILY Neurological 03/09/19 10/23/23 History
Condition
sennosides 8.6 mg tablet (senna) 17.2 mg PO BID Constipation 06/04/23 10/23/23 History
acetaminophen 500 mg tablet 1,000 mg PO TID Pain 10/23/23 10/23/23 History
(Tylenol Extra Strength)
amlodipine 5 mg tablet 5 mg PO DAILY Blood Pressure 10/23/23 10/23/23 History
ferrous sulfate 325 mg (65 mg 325 mg PO DAILY Supplement 10/23/23 10/23/23 History
iron) tablet
hydralazine 25 mg tablet 25 mg PO TID Blood Pressure 10/23/23 10/23/23 History
levetiracetam 500 mg tablet 2,000 mg PO HS Seizures 10/23/23 10/23/23 History
levothyroxine 25 mcg tablet 25 mcg PO DAILY Thyroid 10/23/23 10/23/23 History
lidocaine 4 % topical patch 1 patch topical BID lower back pain 10/23/23 10/23/23 History
Review of Systems
-
No current chest pain or shortness of breath. She does not have much of an appetite. She denies swelling. She denies issues with urination. The remainder of the complete review of systems was negative
Physical Exam
Vital Signs
Vital Signs
Temp Pulse Resp BP Pulse Ox
98.9 F 113 16 111/78 93
10/26/23 16:10 10/26/23 16:10 10/26/23 16:10 10/26/23 16:10 10/26/23 16:10
Lab Results
WBC 9.2 10^3/uL (4.8-10.8) 10/24/23 07:32
RBC 3.88 10^6/uL (4.20-5.40) L 10/24/23 07:32
Hgb 12.1 g/dL (12.0-16.0) 10/24/23 07:32
Hct 34.1 % (37.0-47.0) L 10/24/23 07:32
Plt Count 262 10^3/uL (130-400) 10/24/23 07:32
Sodium 123 mmol/L (135-145) L 10/26/23 08:33
Potassium 4.2 mmol/L (3.5-5.1) 10/26/23 08:33
Chloride 93 mmol/L (98-107) L 10/26/23 08:33
Carbon Dioxide 19 mmol/L (22-30) L 10/26/23 08:33
BUN 28 mg/dl (7-17) H 10/26/23 08:33
Creatinine 0.7 mg/dL (0.6-1.0) 10/26/23 08:33
eGFR > 60.00 10/26/23 08:33
Glucose 93 mg/dl (70-99) 10/26/23 08:33
Calcium 9.4 mg/dl (8.4-10.2) 10/26/23 08:33
Cbz-P-Ikytqeeonob Pept 6280 pg/ml 10/23/23 09:08
Albumin 4.2 g/dl (3.5-5.0) 10/23/23 10:35
Physical Exam
Patient is awake alert oriented and in no distress. Mood and affect were pleasant, insight and judgment were good. Pupils are equal round and reactive to light, extraocular movements are intact, sclera were anicteric. Hearing was normal, ears and
nose are intact. Neck was supple with trachea midline and no thyromegaly. Heart was regular rate and rhythm without rubs. Lower extremities with minimal edema. Lungs were clear to auscultation bilaterally and with normal excursion. Abdomen was soft,
nontender, with normal active bowel sounds, and no hepatosplenomegaly. Skin was without rash and with normal turgor.
Data Reviewed
-
Radiology: Image Personally Visualized and interpreted (CT chest PE protocol on October 24, 2023 shows a history of fibrosis T9 compression fracture no PE)
Medical Tests (Nuc Med, Echo etc): Image Personally Visualized and interpreted (Chest x-ray on October 23, 2023 by my reading shows low lung volumes with mild interstitial fibrosis; EKG on 10/24/2023 by my reading shows sinus tachycardia left axis
deviation nonspecific T wave abnormalities)
Labs: Labs Reviewed by me (Sodium 123, potassium 4.2, creatinine 0.7, bicarbonate 19)
Old Records: Reviewed (On October 29, 2022 sodium 130, on July 03, 2023 sodium 127)
Assessment/Plan
-
Assessment:
Interstitial fibrosis/interstitial lung disease
Pulmonary artery hypertension
Acute on chronic hyponatremia
Orthostatic hypotension
T9 compression fracture
Elevated troponin
Seizure disorder
Plan:
Her urine osmolality was 478 with a urine sodium level of 172.
I have added Lasix 20 mg daily
Follow BMP
May consider additional salt tablets if needed
[2023-10-26] MEDS: LASIX 20 MG PO (16:22)
--- NOTE | 2023-10-26 17:00 | PTCARENOTE ---
Patient reports mild dizziness with standing today.
[2023-10-26] MEDS: LOVENOX 40 MG SC (17:53)
[2023-10-26] MEDS: TYLENOL 650 MG PO (20:55)
[2023-10-26] MEDS: ULTRAM 50 MG PO (23:50)
[2023-10-26] MEDS: KEPPRA 2000 MG PO (23:51)
[2023-10-27] VITALS (8 sets, daily range): BP systolic 102–156; BP diastolic 69–94; PULSE 77–94; BMI 23.4
[2023-10-27] MEDS: TYLENOL 650 MG PO ×2 (04:29→19:47)
[2023-10-27] MEDS: SYNTHROID 25 MCG PO (05:03)
--- NOTE | 2023-10-27 08:51 | W.PN.HOSP.TC ---
Today's Communication/Plan
-
Samsca. Monitor sodium. PT reeval
Assessment / Plan
Assessment / Plan
Gen-AAOx3, NAD
HEENT-NC, AT, anicteric, clear oral mm
Neck-supple
CV-reg, no M, +S1/S2
Lungs-clear B/L
Abd-soft, NT, ND
Ext-no edema
Musculoskeletal-no cyanosis, clubbing
Skin-warm and dry
Neuro-grossly non-focal
Psych-calm, cooperative
A/P:
Acute hypoxic respiratory insufficiency - oxygenation stable on room air. Etiology of shortness of breath possibly due to interstitial lung disease. CT chest showed dilated main pulmonary outflow tract suggestive of pulmonary artery hypertension.
UIP pattern of interstitial fibrosis noted. Question of mild interstitial edema. Stable diffuse ectasia of the thoracic aorta.
Echocardiogram shows LVEF 65 to 70%, no regional wall motion abnormalities, enlarged RV size with moderately reduced RV systolic function, mild to moderate MR, mild AR, mild to moderate TR. 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 BNP 6280. She
received Lasix on Thursday and Thursday. Hold further Lasix as I am not convinced she has heart failure.
Suspect valvular heart disease may be contributing to at least some of her shortness of breath. Pulmonary hypertension also contributing.
Pulse ox dropped to 85% on room air with ambulation yesterday, improved to 92% within 1 minute. Anticipate she will need oxygen on discharge. Daughter asked about pulmonary evaluation and we went over possible outpatient or inpatient but
ultimately decided to have them evaluate her since she has not seen any foreign broadcast specialist since possible diagnosis. Appreciated pulmonary input.
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 Sodium appears to usually run in the 120 range. She is asymptomatic from a hyponatremia standpoint. TSH normal. Cortisol
likely falsely elevated due to IV hydrocortisone administration in preparation for IV contrast. Checked urine studies. Fluid restrict at 40 ounces daily.
See below:
Yesterday-->sodium got worse so we will request nephrology evaluation. Might need to start diuretics or consider Samsca. Nephrology started her on Lasix 20 mg daily.
Today---> nephrology starting Samsca today 10/26. Monitor sodium after medication. Not ready for discharge due to worsening sodium.
Recurrent falls/ambulatory dysfunction -likely multifactorial etiology for falling including deconditioning, frailty, orthostasis, etc.
Orthostatic hypotension -compression stockings ordered. Continue to check orthostatics.
Multiple vertebral compression fractures - suspect due to falls and underlying osteoporosis. T9 compression deformity noted on CT scan. L1 and L2 chronic compression deformities noted on x-ray.
Essential hypertension with hypertensive urgency -blood pressure improving now. Would allow permissive hypertension if it comes to that point due to orthostatic.
Troponin elevation -suspect acute nonischemic myocardial injury due to uncontrolled blood pressure. Troponins trended down. Echocardiogram without wall motion abnormality. Does show findings of pulmonary hypertension. Cardiology input noted.
Chronic constipation -change bowel meds to standing orders. No bowel movement so far in the hospital.
Seizure disorder -continue meds.
Hypothyroidism - continue Synthroid.
History of herpes encephalitis
GERD
DNR
Dispo -she lives in [place] but will need to go to SNF. Anticipate [facility] once we have insurance approval. Informed case management.
Updated daughter on the phone yesterday. All questions answered.
Anticipated Discharge: 24 - 48 hours
Subjective/Interval History
-
Date of Service: October 27, 2023
Patient denies any new complaints. Generalized weakness present. No chest pain
Objective Data
-
Labs:
Laboratory Results
10/27/23
07:34
Sodium Pending
Potassium Pending
Chloride Pending
Carbon Dioxide Pending
BUN Pending
Creatinine Pending
Glucose Pending
Calcium Pending
Vital Signs:
Vital Signs
Temp Pulse Resp BP Pulse Ox
97.6 F 72 16 156/89 96
10/27/23 08:03 10/27/23 08:03 10/27/23 08:03 10/27/23 08:03 10/27/23 08:03
I&O
10/26/23 10/27/23 10/28/23
06:59 06:59 06:59
Intake Total 770 / 770 1220 / 1220
Balance 770 / 770 1220 / 1220
[2023-10-27] MEDS: MIRALAX 17 GRAMS PO (09:13)
[2023-10-27] MEDS: APRESOLINE 25 MG PO ×3 (09:13→22:12)
[2023-10-27] MEDS: PROTONIX 40 MG PO (09:14)
[2023-10-27] MEDS: SENOKOT-S 1 TABLET PO ×2 (09:14→19:47)
[2023-10-27] MEDS: NORVASC 5 MG PO (09:14)
[2023-10-27] MEDS: LIDOCAINE 4% PATCH 1 PATCH TOPICAL (09:14)
[2023-10-27] MEDS: LASIX 20 MG PO (09:14)
[2023-10-27] MEDS: FEOSOL 325 MG PO (09:15)
[2023-10-27] MEDS: KEPPRA 1500 MG PO (09:15)
[2023-10-27] MEDS: ULTRAM 50 MG PO ×2 (09:16→16:36)
[2023-10-27 09:24] LABS: Blood Urea Nitrogen 26 mg/dl (7-17); Calcium 8.5 mg/dl (8.4-10.2); Carbon Dioxide 21 mmol/L (22-30); Chloride 93 mmol/L (98-107); Estimated Creatinine Clearance 47 ml/min; Glucose 82 mg/dl (70-99); Potassium 4.2 mmol/L (3.5-5.1); Sodium 122 mmol/L (135-145); eGFR > 60.00
--- NOTE | 2023-10-27 11:30 | W.PN.NEPH.PH ---
Today's Communication / Plan
-
samsca
Assessment/Plan
-
Assessment:
Interstitial fibrosis/interstitial lung disease
Pulmonary artery hypertension
Acute on chronic hyponatremia
Orthostatic hypotension
T9 compression fracture
Elevated troponin
Seizure disorder
Plan:
Her urine osmolality was 478 with a urine sodium level of 172.
continue Lasix 20 mg daily
Follow BMP
May consider addition of salt tablets if needed
samsca today
-
-
Date of Service: October 27, 2023
CC / HPI / ROS
-
Chief Complaint:
hyponatremia
History of Present Illness:
Na low at 122
BP stable/high
eating well
oxygenation stable
Review of Systems:
no CP/SOB
Labs
-
Labs:
WBC 9.2 10^3/uL (4.8-10.8) 10/24/23 07:32
RBC 3.88 10^6/uL (4.20-5.40) L 10/24/23 07:32
Hgb 12.1 g/dL (12.0-16.0) 10/24/23 07:32
Hct 34.1 % (37.0-47.0) L 10/24/23 07:32
Plt Count 262 10^3/uL (130-400) 10/24/23 07:32
Sodium 122 mmol/L (135-145) L 10/27/23 07:34
Potassium 4.2 mmol/L (3.5-5.1) 10/27/23 07:34
Chloride 93 mmol/L (98-107) L 10/27/23 07:34
Carbon Dioxide 21 mmol/L (22-30) L 10/27/23 07:34
BUN 26 mg/dl (7-17) H 10/27/23 07:34
Creatinine 0.7 mg/dL (0.6-1.0) 10/27/23 07:34
eGFR > 60.00 10/27/23 07:34
Glucose 82 mg/dl (70-99) 10/27/23 07:34
Calcium 8.5 mg/dl (8.4-10.2) 10/27/23 07:34
Ozj-X-Ohbohbakrvb Pept 6280 pg/ml 10/23/23 09:08
Albumin 4.2 g/dl (3.5-5.0) 10/23/23 10:35
Physical Exam
-
Vital Signs:
Vital Signs
Temp Pulse Resp BP Pulse Ox
97.6 F 72 16 156/89 96
10/27/23 08:03 10/27/23 08:03 10/27/23 08:03 10/27/23 08:03 10/27/23 08:03
Cardiovascular:: Regular rate and rhythm
Respiratory:: Bilateral: Coarse
Lung Excursion:: Normal
Abdomen:: Nontender and Soft
Bowel Sounds:: Normal
Extremity Edema:: +2: Bilateral:
[2023-10-27] MEDS: SAMSCA 7.5 MG PO (11:50)
--- NOTE | 2023-10-27 11:58 | CM ---
Addendum entered by Carla Garrett 10/27/23 15:47:
PT recommending skilled rehab.
Original Note:
Patient seen bedside.
Continue to monitor sodium, 122 today.
Patient would like [facility] when stable, will need insurance auth.
Plan: skilled rehab when medically stable, bed available and auth obtained.
[2023-10-27] MEDS: LOVENOX 40 MG SC (17:04)
[2023-10-27] MEDS: KEPPRA 2000 MG PO (22:12)
[2023-10-28] VITALS (8 sets, daily range): BP systolic 114–171; BP diastolic 72–113; PULSE 80–106; BMI 24.0
[2023-10-28] MEDS: ULTRAM 50 MG PO (04:05)
[2023-10-28] MEDS: SYNTHROID 25 MCG PO (06:16)
[2023-10-28] MEDS: TYLENOL 650 MG PO ×3 (06:18→22:59)
[2023-10-28 09:41] LABS: Blood Urea Nitrogen 23 mg/dl (7-17); Calcium 8.8 mg/dl (8.4-10.2); Carbon Dioxide 21 mmol/L (22-30); Chloride 92 mmol/L (98-107); Estimated Creatinine Clearance 47 ml/min; Glucose 85 mg/dl (70-99); Potassium 4.6 mmol/L (3.5-5.1); Sodium 120 mmol/L (135-145); eGFR > 60.00
--- NOTE | 2023-10-28 09:42 | W.PN.HOSP.TC ---
Today's Communication/Plan
-
Discharge once nephrology cleared her from hyponatremia standpoint.
Assessment / Plan
Assessment / Plan
Gen-AAOx3, NAD
HEENT-NC, AT, anicteric, clear oral mm
Neck-supple
CV-reg, no M, +S1/S2
Lungs-clear B/L
Abd-soft, NT, ND
Ext-no edema
Musculoskeletal-no cyanosis, clubbing
Skin-warm and dry
Neuro-grossly non-focal
Psych-calm, cooperative
A/P:
Acute hypoxic respiratory insufficiency - oxygenation stable on room air. Etiology of shortness of breath possibly due to interstitial lung disease. CT chest showed dilated main pulmonary outflow tract suggestive of pulmonary artery hypertension.
UIP pattern of interstitial fibrosis noted. Question of mild interstitial edema. Stable diffuse ectasia of the thoracic aorta.
Echocardiogram shows LVEF 65 to 70%, no regional wall motion abnormalities, enlarged RV size with moderately reduced RV systolic function, mild to moderate MR, mild AR, mild to moderate TR. 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 BNP 6280. She
received Lasix on Thursday and Thursday. Hold further Lasix as I am not convinced she has heart failure.
Suspect valvular heart disease may be contributing to at least some of her shortness of breath. Pulmonary hypertension also contributing.
Pulse ox dropped to 85% on room air with ambulation yesterday, improved to 92% within 1 minute. Anticipate she will need oxygen on discharge. Daughter asked about pulmonary evaluation and we went over possible outpatient or inpatient but
ultimately decided to have them evaluate her since she has not seen any dairy specialist since possible diagnosis. Appreciated pulmonary input.
Discharge planning-->once nephrology cleared her from hyponatremia standpoint.
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 Sodium appears to usually run in the 120 range. She is asymptomatic from a hyponatremia standpoint. TSH normal. Cortisol
likely falsely elevated due to IV hydrocortisone administration in preparation for IV contrast. Checked urine studies. Fluid restrict at 40 ounces daily.
See below:
10/25-->sodium got worse so we will request nephrology evaluation. Might need to start diuretics or consider Samsca. Nephrology started her on Lasix 20 mg daily.
10/26---> nephrology starting Samsca today 10/26. Monitor sodium after medication. Not ready for discharge due to worsening sodium.
10/27---> sodium got worse despite Samsca down to 120. Nephrology started her on 3% saline today.
Recurrent falls/ambulatory dysfunction -likely multifactorial etiology for falling including deconditioning, frailty, orthostasis, etc.
Orthostatic hypotension -compression stockings ordered. Continue to check orthostatics.
Multiple vertebral compression fractures - suspect due to falls and underlying osteoporosis. T9 compression deformity noted on CT scan. L1 and L2 chronic compression deformities noted on x-ray.
Essential hypertension with hypertensive urgency -blood pressure improving now. Would allow permissive hypertension if it comes to that point due to orthostatic.
Troponin elevation -suspect acute nonischemic myocardial injury due to uncontrolled blood pressure. Troponins trended down. Echocardiogram without wall motion abnormality. Does show findings of pulmonary hypertension. Cardiology input noted.
Chronic constipation -change bowel meds to standing orders. No bowel movement so far in the hospital.
Seizure disorder -continue meds.
Hypothyroidism - continue Synthroid.
History of herpes encephalitis
GERD
DNR
Dispo -she lives in [place] but will need to go to SNF. Anticipate [facility] once we have insurance approval. Informed case management.
Updated daughter on the phone prior.
Anticipated Discharge: 24 - 48 hours
Subjective/Interval History
-
Date of Service: October 28, 2023
Patient with some generalized weakness and dizziness. No chest pain or shortness of breath.
Objective Data
-
Labs:
Laboratory Results
10/28/23
06:59
Sodium 120 L
Potassium 4.6
Chloride 92 L
Carbon Dioxide 21 L
BUN 23 H
Creatinine 0.7
Glucose 85
Calcium 8.8
Vital Signs:
Vital Signs
Temp Pulse Resp BP Pulse Ox
97.7 F 74 16 150/95 94
10/28/23 07:59 10/28/23 07:59 10/28/23 07:59 10/28/23 07:59 10/28/23 07:59
I&O
10/27/23 10/28/23 10/29/23
06:59 06:59 06:59
Intake Total 1220 / 1220 1140 / 1140
Balance 1220 / 1220 1140 / 1140
[2023-10-28] MEDS: NORVASC 5 MG PO (09:46)
[2023-10-28] MEDS: FEOSOL 325 MG PO (09:47)
[2023-10-28] MEDS: LASIX 20 MG PO (09:47)
[2023-10-28] MEDS: SENOKOT-S 1 TABLET PO ×2 (09:47→20:47)
[2023-10-28] MEDS: KEPPRA 1500 MG PO (09:47)
[2023-10-28] MEDS: PROTONIX 40 MG PO (09:47)
[2023-10-28] MEDS: APRESOLINE 25 MG PO ×3 (09:47→23:29)
[2023-10-28] MEDS: LIDOCAINE 4% PATCH 1 PATCH TOPICAL (09:48)
[2023-10-28] MEDS: MIRALAX PO ×2 (09:48→12:43)
--- NOTE | 2023-10-28 11:42 | W.PN.NEPH.PH ---
Today's Communication / Plan
-
3% saline
Maintain Lasix and fluid restrict
Recheck electrolytes later this afternoon
Assessment/Plan
-
Assessment:
Interstitial fibrosis/interstitial lung disease
Pulmonary artery hypertension
Acute on chronic hyponatremia
Orthostatic hypotension
T9 compression fracture
Elevated troponin
Seizure disorder
Plan:
Her urine osmolality was 478 with a urine sodium level of 172.
continue Lasix 20 mg daily
Follow BMP
Samsca provided 7.5 mg yesterday without change in sodium as sodium dropped to 120
Will provide 3% saline
Maintain strict fluid restriction: Patient not likely compliant per discussion with nursing
-
-
Date of Service: October 28, 2023
CC / HPI / ROS
-
Chief Complaint:
hyponatremia
History of Present Illness:
Na low at 120
BP stable/high
eating well
oxygenation stable
Review of Systems:
no CP/SOB
Labs
-
Labs:
WBC 9.2 10^3/uL (4.8-10.8) 10/24/23 07:32
RBC 3.88 10^6/uL (4.20-5.40) L 10/24/23 07:32
Hgb 12.1 g/dL (12.0-16.0) 10/24/23 07:32
Hct 34.1 % (37.0-47.0) L 10/24/23 07:32
Plt Count 262 10^3/uL (130-400) 10/24/23 07:32
Sodium 120 mmol/L (135-145) L 10/28/23 06:59
Potassium 4.6 mmol/L (3.5-5.1) 10/28/23 06:59
Chloride 92 mmol/L (98-107) L 10/28/23 06:59
Carbon Dioxide 21 mmol/L (22-30) L 10/28/23 06:59
BUN 23 mg/dl (7-17) H 10/28/23 06:59
Creatinine 0.7 mg/dL (0.6-1.0) 10/28/23 06:59
eGFR > 60.00 10/28/23 06:59
Glucose 85 mg/dl (70-99) 10/28/23 06:59
Calcium 8.8 mg/dl (8.4-10.2) 10/28/23 06:59
Qqn-Z-Ifekwyhoklh Pept 6280 pg/ml 10/23/23 09:08
Albumin 4.2 g/dl (3.5-5.0) 10/23/23 10:35
Physical Exam
-
Vital Signs:
Vital Signs
Temp Pulse Resp BP Pulse Ox
97.7 F 74 16 150/95 94
10/28/23 07:59 10/28/23 09:47 10/28/23 07:59 10/28/23 09:47 10/28/23 07:59
Cardiovascular:: Regular rate and rhythm
Respiratory:: Bilateral: Coarse
Lung Excursion:: Normal
Abdomen:: Nontender
Black Catheter: No
[2023-10-28] MEDS: SODIUM CHLORIDE 3% 250 IV (13:00)
[2023-10-28] MEDS: LOVENOX 40 MG SC (16:46)
[2023-10-28] MEDS: MIRALAX 17 GRAMS PO (17:03)
--- NOTE | 2023-10-28 17:45 | CM ---
patient with resp insufficieny,stable o2 sats on ra,na 12o-neph following.Plan dc to [facility] when na stable,patient will need insurance auth.
[2023-10-28 20:50] LABS: Carbon Dioxide 23 mmol/L (22-30); Chloride 95 mmol/L (98-107); Potassium 4.5 mmol/L (3.5-5.1); Sodium 123 mmol/L (135-145)
[2023-10-28] MEDS: KEPPRA 2000 MG PO (23:29)
[2023-10-29 03:16] VITALS: BP 155/91
[2023-10-29] MEDS: TYLENOL 650 MG PO ×2 (05:09→13:28)
[2023-10-29] MEDS: SYNTHROID 25 MCG PO (05:09)
[2023-10-29 06:00] VITALS: BMI 23.8
[2023-10-29 07:30] VITALS: BP 154/95; BP 155/95; PULSE 78; PULSE 84
--- NOTE | 2023-10-29 08:23 | W.PN.HOSP.TC ---
Today's Communication/Plan
-
Continue current management. Discharge planning in progress
Assessment / Plan
Assessment / Plan
Gen-AAOx3, NAD
HEENT-NC, AT, anicteric, clear oral mm
Neck-supple
CV-reg, no M, +S1/S2
Lungs-clear B/L
Abd-soft, NT, ND
Ext-no edema
Musculoskeletal-no cyanosis, clubbing
Skin-warm and dry
Neuro-grossly non-focal
Psych-calm, cooperative
A/P:
Acute hypoxic respiratory insufficiency - oxygenation stable on room air. Etiology of shortness of breath possibly due to interstitial lung disease. CT chest showed dilated main pulmonary outflow tract suggestive of pulmonary artery hypertension.
UIP pattern of interstitial fibrosis noted. Question of mild interstitial edema. Stable diffuse ectasia of the thoracic aorta.
Echocardiogram shows LVEF 65 to 70%, no regional wall motion abnormalities, enlarged RV size with moderately reduced RV systolic function, mild to moderate MR, mild AR, mild to moderate TR. 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 BNP 6280. She
received Lasix on Thursday and Thursday. Hold further Lasix as I am not convinced she has heart failure.
Suspect valvular heart disease may be contributing to at least some of her shortness of breath. Pulmonary hypertension also contributing.
Pulse ox dropped to 85% on room air with ambulation yesterday, improved to 92% within 1 minute. Anticipate she will need oxygen on discharge. Daughter asked about pulmonary evaluation and we went over possible outpatient or inpatient but
ultimately decided to have them evaluate her since she has not seen any chief specialist le[place] since possible diagnosis. Appreciated pulmonary input.
She did have some shortness of breath on exertion today but nothing different identified on her exam, nor she is hypoxic or febrile. Will obtain a stat chest x-ray and if nothing new then we will proceed to discharge her and have him follow-up with
pulmonary as outpatient.
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 Sodium appears to usually run in the 120 range. She is asymptomatic from a hyponatremia standpoint. TSH normal. Cortisol
likely falsely elevated due to IV hydrocortisone administration in preparation for IV contrast. Checked urine studies. Fluid restrict at 40 ounces daily.
See below:
10/25-->sodium got worse so we will request nephrology evaluation. Might need to start diuretics or consider Samsca. Nephrology started her on Lasix 20 mg daily.
10/26---> nephrology starting Samsca today 10/26. Monitor sodium after medication. Not ready for discharge due to worsening sodium.
10/27---> sodium got worse despite Samsca down to 120. Nephrology started her on 3% saline. Na went up to 123 in the evening with hypertonic fluids.
10/28---> sodium up to 124 today. I reached out to nephrology today and they are okay to discharge
Recurrent falls/ambulatory dysfunction -likely multifactorial etiology for falling including deconditioning, frailty, orthostasis, etc.
Orthostatic hypotension -compression stockings ordered. Continue to check orthostatics.
Multiple vertebral compression fractures - suspect due to falls and underlying osteoporosis. T9 compression deformity noted on CT scan. L1 and L2 chronic compression deformities noted on x-ray.
Essential hypertension with hypertensive urgency -blood pressure improving now. Would allow permissive hypertension if it comes to that point due to orthostatic.
Troponin elevation -suspect acute nonischemic myocardial injury due to uncontrolled blood pressure. Troponins trended down. Echocardiogram without wall motion abnormality. Does show findings of pulmonary hypertension. Cardiology input noted.
Chronic constipation -change bowel meds to standing orders. No bowel movement so far in the hospital.
Seizure disorder -continue meds.
Hypothyroidism - continue Synthroid.
History of herpes encephalitis
GERD
DNR
Dispo -she lives in [place] but will need to go to SNF. Anticipate [facility] once we have insurance approval. Informed case management.
Updated daughter on the phone prior.
Anticipated Discharge: Today
Subjective/Interval History
-
Date of Service: October 29, 2023
Patient with some shortness of breath on exertion. No chest pain. Afebrile.
Objective Data
-
Labs:
Laboratory Results
10/28/23 10/29/23
20:24 07:23
Sodium 123 L Pending
Potassium 4.5 Pending
Chloride 95 L Pending
Carbon Dioxide 23 Pending
BUN Pending
Creatinine Pending
Glucose Pending
Calcium Pending
Vital Signs:
Vital Signs
Temp Pulse Resp BP Pulse Ox
98.3 F 86 18 155/91 95
10/29/23 08:21 10/29/23 03:16 10/29/23 03:16 10/29/23 03:16 10/29/23 08:21
I&O
10/28/23 10/29/23 10/30/23
06:59 06:59 06:59
Intake Total 1140 / 1140 1440 / 1440
Output Total 700 / 700
Balance 1140 / 1140 740 / 740
[2023-10-29 09:03] LABS: Blood Urea Nitrogen 15 mg/dl (7-17); Calcium 8.8 mg/dl (8.4-10.2); Carbon Dioxide 22 mmol/L (22-30); Chloride 96 mmol/L (98-107); Estimated Creatinine Clearance 55 ml/min; Glucose 77 mg/dl (70-99); Potassium 4.6 mmol/L (3.5-5.1); Sodium 124 mmol/L (135-145); eGFR > 60.00
[2023-10-29] MEDS: NORVASC 5 MG PO (09:22)
[2023-10-29] MEDS: PROTONIX 40 MG PO (09:22)
[2023-10-29] MEDS: KEPPRA 1500 MG PO (09:22)
[2023-10-29] MEDS: MIRALAX 17 GRAMS PO (09:22)
[2023-10-29] MEDS: SENOKOT-S 1 TABLET PO (09:22)
[2023-10-29] MEDS: FEOSOL 325 MG PO (09:22)
[2023-10-29] MEDS: LIDOCAINE 4% PATCH 1 PATCH TOPICAL (09:23)
[2023-10-29] MEDS: APRESOLINE 25 MG PO (09:24)
[2023-10-29] MEDS: LASIX 20 MG PO (09:24)
[2023-10-29 11:38] VITALS: BP 135/88; BP 139/93; PULSE 100; PULSE 109; O2SAT 96
--- NOTE | 2023-10-29 11:48 | CM ---
Patient seen bedside; Continue to monitor sodium, 124 today.
Plan for [facility] when stable, will need insurance auth.
Plan: skilled rehab when medically stable, bed available and auth obtained
[2023-10-29 11:59] VITALS: BP 135/88; BP 139/93; PULSE 100; PULSE 109
--- NOTE | 2023-10-29 12:09 | W.DCSUMMARY ---
Discharge Summary
Discharge Data
Date of Admission: 10/23/23
Date of Discharge: 10/29/23
-
Pending Results: No
Hospital Course
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 Patient found to have compression spine fractures L1
L2, elevated troponin and HTN. She was given pain medications for her back and physical therapy evaluation. Cardiology consulted. Cardiology workup trended her cardiac enzymes and did an echocardiogram. No evidence of OK. Echocardiogram showed
increased right ventricular pressures and prompted a CTA of the chest that was negative for PE. Right ventricular pressures were most likely increased due to underlying pulmonary fibrosis. She had some mild diuresis for mild degree of heart
failure. Cardiology was comfortable with her progress. Patient also was evaluated by pulmonary during this hospital stay and they will be continued to evaluate as outpatient. As far as her hyponatremia, it did get worse so she required 3% saline
and Samsca. Nephrology evaluated her. Her sodium upon discharge is 124. I reached out to nephrology today and nephrology is clearing her for discharge today. She has been placed on oral diuretics, salt tablets, and fluid restriction. [facility]
Discharge duration: 37 minutes
Discharge Plan
-
Patient Disposition: Usp/SNF
Discharge Diagnosis/Procedures: Pulmonary fibrosis, multiple vertebral compression fractures, ambulatory dysfunction, hyponatremia.
Condition: Fair
Diet: Low Fat, Low Cholesterol and 2 Gram Sodium
Additional Diets: 40 ounce fluid restriction daily
Activity: With assistance
Driving Restrictions: No driving
Bathing Restrictions: None
Blood Work: Please PCP to order BMP within 1 week
Specialty Instructions: Weigh Daily- Call MD for wt gain/loss 3 lbs overnight/5 lbs in 1 week
Referrals:
Tarik Mayo I., DO [Family Provider] - in less than 1 week
Arcadio Souza MD [Active] - in two to four weeks
Byron Wiggins MD [Active] - in two to four weeks
Prescriptions:
New
furosemide 20 mg Tablet
20 mg PO DAILY 30 Days Qty: 30 0RF
lidocaine 4 % Adhesive Patch,Medicated
1 patch topical DAILY 15 Days Qty: 15 0RF
acetaminophen [Tylenol] 325 mg capsule
650 mg PO Q4H PRN (Reason: Pain) Qty: 20 0RF
sodium chloride 1,000 mg Tablet,Soluble
1,000 mg PO BID 10 Days Qty: 20 0RF
Continued
pantoprazole 40 MG tablet,delayed release (DR/EC)
40 mg PO DAILY
levetiracetam 500 MG tablet
1,500 mg PO DAILY
sennosides [senna] 8.6 mg Tablet
17.2 mg PO BID
levetiracetam 500 mg Tablet
2,000 mg PO HS
hydralazine 25 mg Tablet
25 mg PO TID
amlodipine 5 mg Tablet
5 mg PO DAILY
acetaminophen [Tylenol Extra Strength] 500 mg Tablet
1,000 mg PO TID
levothyroxine 25 mcg Tablet
25 mcg PO DAILY
ferrous sulfate 325 mg (65 mg iron) Tablet
325 mg PO DAILY
Discontinued
lidocaine 4 % Adhesive Patch,Medicated
1 patch TOPICAL BID
Discharge Orders:
Discharge Patient (As Directed); Ordered 10/29/23
Ordered By: Noah Sykes
Discharge Date and Time
Discharge Date/Time: 10/29/23 18:27
Print Language: GABONESE
[2023-10-29] MEDS: LASIX 40 MG IV (13:27)
[2023-10-29] MEDS: SODIUM CHLORIDE 1 GRAM PO (13:28)
--- NOTE | 2023-10-29 13:46 | CM ---
Patient cleared for d/c to [facility] for today.
Insurance auth received:
Skilled rehab level 1
Authorization # [id number]
approved 5 days.
Start date 10/29/23 LCD and NRD 11/02/23
updates to [phone]
Ambulance transport via
Acute care- 6:15 pm
Authorization #[id number]
Plan: [facility]
IMM completed.
Daughter updated.
[place]
Report# [phone]
--- NOTE | 2023-10-29 14:39 | W.PN.NEPH.PH ---
Today's Communication / Plan
-
Tolvaptan 15 mg x 1
Assessment/Plan
-
Assessment:
Interstitial fibrosis/interstitial lung disease
Pulmonary artery hypertension
Acute on chronic hyponatremia
Orthostatic hypotension
T9 compression fracture
Elevated troponin
Seizure disorder
Plan:
Her urine osmolality was 478 with a urine sodium level of 172.
continue Lasix 20 mg daily
Follow BMP
Samsca provided 7.5 mg yesterday without change in sodium as sodium dropped to 120
provided 3% saline with modest improvement to 124
will provide 15mg po times one now
Maintain strict fluid restriction: Patient not likely compliant per discussion with nursing
-
-
Date of Service: October 29, 2023
CC / HPI / ROS
-
Chief Complaint:
hyponatremia
History of Present Illness:
Na low at 124 after 3% saline
BP stable/high
eating well
oxygenation stable
Review of Systems:
no CP/SOB
Labs
-
Labs:
WBC 9.2 10^3/uL (4.8-10.8) 10/24/23 07:32
RBC 3.88 10^6/uL (4.20-5.40) L 10/24/23 07:32
Hgb 12.1 g/dL (12.0-16.0) 10/24/23 07:32
Hct 34.1 % (37.0-47.0) L 10/24/23 07:32
Plt Count 262 10^3/uL (130-400) 10/24/23 07:32
Sodium 124 mmol/L (135-145) L 10/29/23 07:23
Potassium 4.6 mmol/L (3.5-5.1) 10/29/23 07:23
Chloride 96 mmol/L (98-107) L 10/29/23 07:23
Carbon Dioxide 22 mmol/L (22-30) 10/29/23 07:23
BUN 15 mg/dl (7-17) 10/29/23 07:23
Creatinine 0.6 mg/dL (0.6-1.0) 10/29/23 07:23
eGFR > 60.00 10/29/23 07:23
Glucose 77 mg/dl (70-99) 10/29/23 07:23
Calcium 8.8 mg/dl (8.4-10.2) 10/29/23 07:23
The-W-Meamhnjssgj Pept 6280 pg/ml 10/23/23 09:08
Albumin 4.2 g/dl (3.5-5.0) 10/23/23 10:35
Physical Exam
-
Vital Signs:
Vital Signs
Temp Pulse Resp BP Pulse Ox
97.7 F 100 22 139/93 93
10/29/23 12:00 10/29/23 13:27 10/29/23 12:00 10/29/23 13:27 10/29/23 12:00
Cardiovascular:: Regular rate and rhythm
Respiratory:: Bilateral: Coarse and Bilateral: Wheeze
Lung Excursion:: Normal
Abdomen:: Nontender and Soft
Bowel Sounds:: Normal
Extremity Edema:: None: Bilateral:
Black Catheter: No
[2023-10-29 15:42] VITALS: BP 90/60
--- NOTE | 2023-10-29 16:00 | PTCARENOTE ---
Patient with significant constipation. Abdomen firm/distended. Unable to empty appropriately. Spoke with Dr. Sykes. One time Enema ordered.
Patient was able to have very large liquid/softly formed stool post Enema.
[2023-10-29] MEDS: ULTRAM 50 MG PO (17:04)
[2023-10-29] MEDS: APRESOLINE PO (17:05)
[2023-10-29] MEDS: LOVENOX SC (17:05)
[2023-10-29] MEDS: SAMSCA 15 MG PO (17:05)
== END 2023-10-29 18:27 | DRG 197 ==
LOC: 4 WEST ACU 11:03
PROVIDERS: Emergency Medicine; Hospitalist; Specialist; ADMITTING PHYSICIAN Hospitalist; CONSULT PHYSICIAN Internal Medicine Cardiovascular Disease; CONSULT PHYSICIAN Internal Medicine Critical Care Medicine; CONSULT PHYSICIAN Specialist; EMERGENCY PHYSICIAN Emergency Medicine; FAMILY PHYSICIAN Internal Medicine
DX: J84.112 Idiopathic pulmonary fibrosis (principal); E22.2 Syndrome of inappropriate secretion of antidiuretic hormone; M48.56XA Collapsed vertebra, not elsewhere classified, lumbar region, initial encounter for fracture; I5A Non-ischemic myocardial injury (non-traumatic); M48.54XA Collapsed vertebra, not elsewhere classified, thoracic region, initial encounter for fracture; M54.9 Dorsalgia, unspecified; R29.6 Repeated falls; G40.909 Epilepsy, unspecified, not intractable, without status epilepticus; E03.9 Hypothyroidism, unspecified; K21.9 Gastro-esophageal reflux disease without esophagitis; R41.82 Altered mental status, unspecified; I50.9 Heart failure, unspecified; I11.0 Hypertensive heart disease with heart failure; I27.21 Secondary pulmonary arterial hypertension; I95.1 Orthostatic hypotension; R09.02 Hypoxemia; R06.89 Other abnormalities of breathing; D64.9 Anemia, unspecified; I77.810 Thoracic aortic ectasia; I16.0 Hypertensive urgency; K59.09 Other constipation; G89.29 Other chronic pain; I44.4 Left anterior fascicular block; W01.0XXA Fall on same level from slipping, tripping and stumbling without subsequent striking against object, initial encounter; Y93.9 Activity, unspecified; Y92.129 Unspecified place in nursing home as the place of occurrence of the external cause; Z66 Do not resuscitate; Z79.890 Hormone replacement therapy; Z91.81 History of falling; Z88.0 Allergy status to penicillin; Z88.2 Allergy status to sulfonamides; Z88.1 Allergy status to other antibiotic agents; Z91.041 Radiographic dye allergy status; Z86.73 Personal history of transient ischemic attack (TIA), and cerebral infarction without residual deficits; Z86.19 Personal history of other infectious and parasitic diseases
CPT/HCPCS: 70450; 71045; 71046; 71275; 72100; 72125; 80048; 80051; 80053; 82533; 82550; 83880; 83930; 83935; 84300; 84443; 84484; 85025; 85027; 93005; 93306; 97163; 97166; 97530; 99291; Q9967

== ENCOUNTER → 2023-11-02 10:43 | Outpatient (REF) | payer OTHER, SELFPAY ==
[2023-11-02 11:03] LABS: % Basophils 0.5 % (0-2); % Eosinophils 4.5 % (0-6); % Lymphocytes 21.6 % (20.5-51.1); % Monocytes 8.4 % (1.7-9.3); Absolute Eosinophils 0.4 10^3/uL (0-0.7); Absolute Immature Granulocytes 0.1 10^3/uL (0-0.05); Absolute Lymphocytes 1.9 10^3/uL (1.2-3.4); Absolute Monocytes 0.7 10^3/uL (0.1-0.6); Absolute Neutrophils 5.6 10^3/uL (1.4-6.5); Hematocrit 30.3 % (37.0-47.0); Hemoglobin 10.4 g/dL (12.0-16.0); Mean Corp Hgb Conc. 34.3 g/dL (33.0-37.0); Mean Corpuscular Hgb 30.5 pg (27.0-31.0); Mean Corpuscular Volume 88.9 fL (81.0-99.0); Mean Platelet Volume 9.6 fL (7.4-10.4); Nucleated Red Blood Cells % 0 %; Platelet Count 356 10^3/uL (130-400); Red Blood Cell Count 3.41 10^6/uL (4.20-5.40); Red Cell Dist. Width 13.4 % (11.5-14.5); White Blood Cell Count 8.7 10^3/uL (4.8-10.8)
[2023-11-02 11:23] LABS: Blood Urea Nitrogen 14 mg/dl (7-17); Carbon Dioxide 19 mmol/L (22-30); Chloride 98 mmol/L (98-107); Glucose 75 mg/dl (70-99); Potassium 4.4 mmol/L (3.5-5.1); Sodium 126 mmol/L (135-145); eGFR > 60.00
== END ==
LOC: OLABP 10:43
PROVIDERS: ATTENDING PHYSICIAN Family Medicine
DX: J84.9 Interstitial pulmonary disease, unspecified (principal); I27.20 Pulmonary hypertension, unspecified; E87.1 Hypo-osmolality and hyponatremia; I95.1 Orthostatic hypotension; R26.2 Difficulty in walking, not elsewhere classified
CPT/HCPCS: 36415; 80048; 85025

== ENCOUNTER → 2023-11-10 12:16 | Outpatient (REF) | payer OTHER, SELFPAY ==
[2023-11-10 12:50] LABS: % Basophils 0.9 % (0-2); % Eosinophils 3.8 % (0-6); % Immature Granulocytes 0.6 % (0-0.5); % Monocytes 7.7 % (1.7-9.3); Absolute Basophils 0.1 10^3/uL (0-0.2); Absolute Eosinophils 0.3 10^3/uL (0-0.7); Absolute Immature Granulocytes 0.1 10^3/uL (0-0.05); Absolute Lymphocytes 1.5 10^3/uL (1.2-3.4); Absolute Monocytes 0.6 10^3/uL (0.1-0.6); Absolute Neutrophils 5.2 10^3/uL (1.4-6.5); Hematocrit 29.6 % (37.0-47.0); Hemoglobin 10.2 g/dL (12.0-16.0); Mean Corp Hgb Conc. 34.5 g/dL (33.0-37.0); Mean Corpuscular Hgb 30.4 pg (27.0-31.0); Mean Corpuscular Volume 88.4 fL (81.0-99.0); Mean Platelet Volume 9.7 fL (7.4-10.4); Nucleated Red Blood Cells % 0 %; Platelet Count 340 10^3/uL (130-400); Red Blood Cell Count 3.35 10^6/uL (4.20-5.40); Red Cell Dist. Width 13.5 % (11.5-14.5); White Blood Cell Count 7.7 10^3/uL (4.8-10.8)
[2023-11-10 13:28] LABS: ALT (SGPT) 11 U/L (0-35); AST (SGOT) 20 U/L (14-36); Albumin 3.7 g/dl (3.5-5.0); Alkaline Phosphatase 116 U/L (38-126); Blood Urea Nitrogen 11 mg/dl (7-17); Calcium 9.2 mg/dl (8.4-10.2); Carbon Dioxide 19 mmol/L (22-30); Chloride 97 mmol/L (98-107); Glucose 79 mg/dl (70-99); Potassium 4.6 mmol/L (3.5-5.1); Sodium 124 mmol/L (135-145); Total Bilirubin 0.5 mg/dl (0.2-1.3); eGFR > 60.00
== END ==
LOC: OLABP 12:16
PROVIDERS: ATTENDING PHYSICIAN Family Medicine
DX: J84.9 Interstitial pulmonary disease, unspecified (principal); I27.20 Pulmonary hypertension, unspecified; E87.1 Hypo-osmolality and hyponatremia; I95.1 Orthostatic hypotension; S22.070D Wedge compression fracture of T9-T10 vertebra, subsequent encounter for fracture with routine healing; M81.0 Age-related osteoporosis without current pathological fracture; G40.909 Epilepsy, unspecified, not intractable, without status epilepticus; K21.9 Gastro-esophageal reflux disease without esophagitis; M54.50 Low back pain, unspecified; M62.81 Muscle weakness (generalized)
CPT/HCPCS: 36415; 80053; 85025

== ENCOUNTER → 2023-11-13 10:31 | Outpatient (REF) | payer OTHER, SELFPAY ==
[2023-11-13 11:06] LABS: Hematocrit 31.6 % (37.0-47.0); Hemoglobin 10.7 g/dL (12.0-16.0); Mean Corp Hgb Conc. 33.9 g/dL (33.0-37.0); Mean Corpuscular Hgb 30.5 pg (27.0-31.0); Mean Platelet Volume 9.7 fL (7.4-10.4); Platelet Count 323 10^3/uL (130-400); Red Blood Cell Count 3.51 10^6/uL (4.20-5.40); Red Cell Dist. Width 13.5 % (11.5-14.5); White Blood Cell Count 7.8 10^3/uL (4.8-10.8)
[2023-11-13 12:33] LABS: Blood Urea Nitrogen 12 mg/dl (7-17); Calcium 9.2 mg/dl (8.4-10.2); Carbon Dioxide 20 mmol/L (22-30); Chloride 97 mmol/L (98-107); Glucose 81 mg/dl (70-99); Potassium 4.5 mmol/L (3.5-5.1); Sodium 125 mmol/L (135-145); eGFR > 60.00
== END ==
LOC: OLABP 10:31
PROVIDERS: ATTENDING PHYSICIAN Family Medicine
DX: E87.1 Hypo-osmolality and hyponatremia (principal); J84.9 Interstitial pulmonary disease, unspecified
CPT/HCPCS: 36415; 80048; 85027

== ENCOUNTER → 2023-11-16 09:08 | Outpatient (REF) | payer OTHER, SELFPAY ==
[2023-11-16 10:10] LABS: Hematocrit 30.3 % (37.0-47.0); Hemoglobin 10.3 g/dL (12.0-16.0); Mean Corpuscular Hgb 30.9 pg (27.0-31.0); Mean Platelet Volume 9.5 fL (7.4-10.4); Platelet Count 313 10^3/uL (130-400); Red Blood Cell Count 3.33 10^6/uL (4.20-5.40); Red Cell Dist. Width 13.8 % (11.5-14.5); White Blood Cell Count 7.1 10^3/uL (4.8-10.8)
[2023-11-16 10:32] LABS: Blood Urea Nitrogen 11 mg/dl (7-17); Calcium 8.9 mg/dl (8.4-10.2); Carbon Dioxide 21 mmol/L (22-30); Chloride 98 mmol/L (98-107); Glucose 85 mg/dl (70-99); Potassium 4.4 mmol/L (3.5-5.1); Sodium 128 mmol/L (135-145); eGFR > 60.00
== END ==
LOC: OLABP 09:08
PROVIDERS: ATTENDING PHYSICIAN Family Medicine
DX: J84.9 Interstitial pulmonary disease, unspecified (principal); I27.20 Pulmonary hypertension, unspecified; E87.1 Hypo-osmolality and hyponatremia; I95.1 Orthostatic hypotension; M54.50 Low back pain, unspecified; M62.81 Muscle weakness (generalized); M81.0 Age-related osteoporosis without current pathological fracture; G40.909 Epilepsy, unspecified, not intractable, without status epilepticus; K21.9 Gastro-esophageal reflux disease without esophagitis
CPT/HCPCS: 36415; 80048; 85027

== ENCOUNTER 2025-02-16 19:40 | Inpatient (IN) | payer OTHER, SELFPAY ==
[2025-02-16] VITALS (11 sets, daily range): BP systolic 128–153; BP diastolic 80–99; BMI 22.9
--- NOTE | 2025-02-16 12:26 | ED.GENMED ---
History of Present Illness
General
Chief Complaint: Chest Pain
Source: patient
Exam Limitations: none
Time Seen by Provider: 02/16/25 12:17
History of Present Illness
History of Present Illness:
See MDM
Past History
Past History
ED Past Medical History: Other (htn, seizure, herpetic encaphalitis, hypothyroidism)
Social History
Tobacco: Non-smoker
Alcohol: None
Drug: None
Personal:
Living: with family
Employment: Retired
Phy Exam
Physical Exam
Physical Exam:
See MDM
Scores
Heart Score for Chest Pain Patients
STEMI patient?: No
History: Moderately Suspicious
ECG: Normal
Age: >/= 65 years
Risk Factors: 1 or 2 Risk Factors
Troponin: </= Normal Limit
Heart Score for Chest Pain Patients: 4
Heart Score Risk: 20.3% MACE over next 6 weeks
Course
Orders/Labs/Results
Orders:
Orders
02/16/25 12:14
EKG [Electrocardiogram (*1)] Urgent
Reason for Study: Chest Pain
EKG- Treatment ONCE
02/16/25 12:26
CR Chest - 2 Views Urgent
Comment:
Reason For Exam: SOB, hypoxic
02/16/25 12:28
COVID-19 Antigen Urgent
Source: Nasal Swab
Complete Blood Count/With Diff Urgent
Comprehensive Metabolic Panel Urgent
Troponin I Urgent
Influenza A+B Rapid Molecular Urgent
CORINA Source: Nasal Swab
Specimen Description:
02/16/25 13:54
Dexamethasone Sod Phosphate [Decadron] 10 mg IV NOW STA
Abnormal Lab Results
02/16/25
12:28
RBC 3.97 L 10^6/uL
(4.20-5.40)
MCH 31.5 H pg
(27.0-31.0)
Abs Immat Gran (auto) 0.1 H 10^3/uL
(0-0.05)
Absolute Monos (auto) 0.9 H 10^3/uL
(0.1-0.6)
Immature Gran % 1.2 H %
(0-0.5)
Sodium 132 L mmol/L
(135-145)
Carbon Dioxide 21 L mmol/L
(22-30)
02/16/25 12:28
02/16/25 12:28
Vital Signs
Initial and Last Documented VS:
Initial Vital Signs
Temp Pulse Resp BP Pulse Ox
98.4 F 88 26 150/85 89
02/16/25 12:14 02/16/25 12:14 02/16/25 12:14 02/16/25 12:14 02/16/25 12:14
Last Documented Vital Signs
Temp Pulse Resp BP Pulse Ox
98.4 F 83 23 130/90 99
02/16/25 12:14 02/16/25 13:30 02/16/25 12:45 02/16/25 13:22 02/16/25 13:30
MDM/Problems Addressed
Differential Diagnosis Includes:
Note:
CHIEF COMPLAINT(S)
Soreness all over and shortness of breath.
HISTORY OF PRESENT ILLNESS
The patient is an 86-year-old female who presents with generalized soreness and increased shortness of breath. This morning, while in her chair, she was observed to be clutching her chest, suggesting possible discomfort, although she did not
verbally complain of chest pain. She has not been on oxygen therapy prior to arrival and did not arrive with oxygen support. The patient has been experiencing soreness intermittently, which lasts until she takes her medication and moves around.
PLAN
The plan includes conducting a COVID-19 and Influenza test due to symptoms of myalgia, obtaining a chest X-ray to rule out pneumonia, and performing bloodwork to assess cardiac function. Additionally, she will be observed for oxygen levels, and
potential overnight admission may be considered if hypoxia persists. The patient was offered Tylenol for pain management and agreed to it.
PHYSICAL EXAM
General: Weak and frail but lying in bed comfortably
Skin: Warm, dry.
Head: Normocephalic, atraumatic
Neck: Appears supple, trachea midline.
Eyes, Ears, Nose, Mouth, and Throat: Oral mucosa moist.
Cardiovascular: No signs of cyanosis. Regular rate and rhythm
Respiratory: Respirations are non-labored.. Lungs clear
Abdomen: Non-distended
Musculoskeletal: No deformities. No unilateral leg edema or skin changes
Neurological: No focal neurological deficit observed.
Psychiatric: Cooperative, appropriate mood and affect.
DIFFERENTIAL DIAGNOSIS
The Differential Diagnosis includes, in no particular order and is not limited to:
1. Myocardial infarction
2. Congestive heart failure
3. Pulmonary embolism
4. Acute bronchitis
5. Pneumonia
6. Chronic obstructive pulmonary disease exacerbation
7. Influenza
8. COVID-19
9. Musculoskeletal pain
10. Anxiety-related symptoms
My independent EKG interpretation is:
- Rhythm: Sinus rhythm
- Heart Rate: 86 beats per minute
- Abnormality: Left anterior fascicular block
- Evidence: Left ventricular hypertrophy (LVH)
- Observation: No ST-elevation myocardial infarction (No STEMI)
SUMMARY OF ENCOUNTER
The patient, an 86-year-old female, presented to the emergency department with generalized soreness and increased shortness of breath. During evaluation, she was observed clutching her chest. There was no pre-existing oxygen therapy prior to her
arrival. Evaluation included chest X-ray, which showed unchanged pulmonary fibrosis. Hypoxia necessitated supplemental oxygen administration. A decision was made to admit the patient to the hospital service for further management.
DISPOSITION
Admit to the hospital.
ASSESSMENT
The patient requires hospital admission due to hypoxia needing supplemental oxygen and potential underlying conditions such as pulmonary fibrosis.
EMERGENCY TREATMENTS ADMINISTERED
A dose of intravenous steroids was administered.
MANAGEMENT OF THE PATIENTS CARE WAS DISCUSSED WITH
The patients daughter was present at the bedside and agreed with the plan of care and admission.
PLAN
Admit the patient to the hospital for further monitoring and management of her hypoxia and potential complications associated with pulmonary fibrosis.
INDEPENDENT REVIEW OF LABS AND INTERPRETATION OF TESTS
My independent chest X-ray interpretation is unchanged pulmonary fibrosis.
MEDICATION RECONCILIATION
Administered a dose of intravenous steroids (specific drug not specified, but documented as administered).
MEDICAL DECISION MAKING
-Complexity of Data Reviewed: Chronic conditions affecting care, including generalized soreness, shortness of breath, and documented hypoxia.
-Data:
Category 1
The chest X-ray was ordered and independently interpreted to show pulmonary fibrosis.
Category 2
Clinical information was confirmed with the patients daughter, who was involved in the decision-making process.
-Risk:
The decision was made to admit the patient due to hypoxia requiring supplemental oxygen, indicating a higher risk for complications if not monitored closely in a hospital setting.
DIAGNOSIS
1. Pulmonary fibrosis (ICD-10: J84.10)
2. Hypoxia (ICD-10: R09.02)
3. Soreness (possible musculoskeletal pain) (ICD-10: M79.1)
*Pulse Oximetry
SaO2: 98
Oxygen Mode of Delivery: Room air
Patient hypoxic: no
*Critical Care Note
Total Time (30-74mins, 75-104mins- exclusive of procedures): Not Applicable
ED Attending Note
-
Portions of this chart may have been created with voice recognition software.� Occasional wrong word or��sound alike� substitutions may have occurred due to the inherent limitations of voice recognition software.
Discharge Plan
Departure
Patient Disposition: Admit
Date of Disposition: 02/16/25
Time of Disposition: 13:58
Admit to: Med/Surg
Presentation/result/management discussed w/ accepting /DO: Hospitalist
Discharge Problem:
Hypoxia, Pulmonary fibrosis
Prescriptions:
No Action
pantoprazole 40 MG tablet,delayed release (DR/EC)
40 mg PO DAILY
levetiracetam 500 MG tablet
1,500 mg PO DAILY
sennosides [senna] 8.6 mg Tablet
17.2 mg PO BID
levetiracetam 500 mg Tablet
2,000 mg PO HS
hydralazine 25 mg Tablet
25 mg PO TID
amlodipine 5 mg Tablet
5 mg PO DAILY
acetaminophen [Tylenol Extra Strength] 500 mg Tablet
1,000 mg PO TID
levothyroxine 25 mcg Tablet
25 mcg PO DAILY
ferrous sulfate 325 mg (65 mg iron) Tablet
325 mg PO DAILY
furosemide 20 mg Tablet
20 mg PO DAILY 30 Days Qty: 30 0RF
lidocaine 4 % Adhesive Patch,Medicated
1 patch topical DAILY 15 Days Qty: 15 0RF
acetaminophen [Tylenol] 325 mg capsule
650 mg PO Q4H PRN (Reason: Pain) Qty: 20 0RF
sodium chloride 1,000 mg Tablet,Soluble
1,000 mg PO BID 10 Days Qty: 20 0RF
Referrals:
Tarik Mayo DO [Family Provider, Internal Medicine]
Interventions
Interventions:
*Risk Screen - Suicide Last Done: 02/16/25 12:14
*General Assessment Last Done: 02/16/25 12:14
*Neglect/Abuse Screening Last Done: 02/16/25 12:14
*ED- Fall Risk Assessment Last Done: 02/16/25 12:14
*ED COVID-19 Vaccine History Last Done: 02/16/25 12:14
ED- Cardiac Assessment Last Done: 02/16/25 12:24
Discharge Date and Time
Print Language: [place]
[2025-02-16 12:37] LABS: Hematocrit 37.4 % (37.0-47.0); Hemoglobin 12.5 g/dL (12.0-16.0); Mean Corp Hgb Conc. 33.4 g/dL (33.0-37.0); Mean Corpuscular Volume 94.2 fL (81.0-99.0); Nucleated Red Blood Cells % 0 %; Platelet Count 351 10^3/uL (130-400); Red Cell Dist. Width 13.3 % (11.5-14.5)
[2025-02-16 12:49] LABS: ALT (SGPT) 18 U/L (0-35); AST (SGOT) 23 U/L (14-36); Albumin 4.6 g/dl (3.5-5.0); Alkaline Phosphatase 73 U/L (38-126); Blood Urea Nitrogen 16 mg/dl (7-17); Calcium 9.1 mg/dl (8.4-10.2); Carbon Dioxide 21 mmol/L (22-30); Chloride 102 mmol/L (98-107); Estimated Creatinine Clearance 38 ml/min; Glucose 88 mg/dl (70-99); Potassium 4.6 mmol/L (3.5-5.1); Sodium 132 mmol/L (135-145); Total Protein 7.3 g/dl (6.3-8.2); eGFR > 60.00
[2025-02-16 12:53] LABS: COVID-19 Antigen Negative (Negative)
[2025-02-16 13:01] LABS: Troponin I < 0.012 ng/ml
[2025-02-16] MEDS: DECADRON 10 MG IV (14:21)
--- NOTE | 2025-02-16 18:28 | HPS.HSE ---
Family Physician
-
Family Physician: Tarik Mayo
Chief Complaint
-
Dyspnea on Exertion; Muscle Pain
History of Present Illness
Patient is an 89 y/o female past medical history of pulmonary fibrosis, pulmonary hypertension, essential hypertension, seizure disorder, and chronic hyponatremia who presents with increased dyspnea on exertion and muscle pains. Additional history
provide by patient's daughter at bedside. Patient's daughter has notice significant increased dyspnea on exertion over the past few weeks. Patient has been experiencing generalized pains for which she has been receiving Tramadol at the assisted
living facility. There has been some concern about increased constipation recently. Patient denies any cough, chest pain, or lower extremity edema. Upon arrival to the emergency department patient was noted to be mildly hypoxic at 89% on Room Air.
Medical History
Past Medical History
Past Medical History: Reports Other
Additional Past Medical History:
Pulmonary Fibrosis
Pulmonary Hypertension
Essential Hypertension
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
Hypothyroidism
Chronic Hyponatremia
Chronic Constipation
GERD
Vasovagal Syncope
ASCVD / Prior TIAs
Past Surgical History: Reports Other
Additional Past Surgical History:
Left Lumpectomy
Colon Resection
Social History
Tobacco: Non-smoker
Alcohol: None
Drug: None
Living: With Family
Family History
Family History: Other (Mother had coronary artery disease and arthritis)
Allergies / Home Medications
Allergies reflects when Allergies were last updated in [facility].
Home Medications with original date entered in [facility]
Allergy/Medication List:
Allergies
Allergy/AdvReac Type Severity Reaction Status Date / Time
erythromycin lactobionate Allergy Rash Verified 10/23/23 20:05
(From Erythrocin)
Iodinated Contrast Media Allergy Hives Verified 10/23/23 20:05
Penicillins Allergy Rash Verified 10/23/23 08:27
Sulfa (Sulfonamide Allergy Rash Verified 10/23/23 08:27
Antibiotics)
Home Medications
pantoprazole 40 mg tablet,delayed release 40 mg PO DAILY Gastrointestinal issue 05/04/10
levetiracetam 500 mg tablet 1,500 mg PO DAILY Neurological Condition 03/09/19
sennosides 8.6 mg tablet (senna) 17.2 mg PO BID Constipation 06/04/23
acetaminophen 500 mg tablet (Tylenol Extra Strength) 1,000 mg PO TID mild Pain 10/23/23
amlodipine 5 mg tablet 5 mg PO DAILY Blood Pressure 10/23/23
ferrous sulfate 325 mg (65 mg iron) tablet 325 mg PO DAILY Supplement 10/23/23
hydralazine 25 mg tablet 25 mg PO TID Blood Pressure 10/23/23
levetiracetam 500 mg tablet 2,000 mg PO HS Seizures 10/23/23
levothyroxine 25 mcg tablet 25 mcg PO DAILY Thyroid 10/23/23
furosemide 20 mg tablet 20 mg PO DAILY 30 days #30 tabs 10/29/23
sodium chloride 1,000 mg soluble tablet 1,000 mg PO BID 10 days #20 tabs 10/29/23
loratadine 10 mg tablet 10 mg PO DAILY 02/16/25
magnesium hydroxide 400 mg/5 mL oral suspension (Milk of Magnesia) 2,400 mg PO DAILYPRN PRN constipation 02/16/25
polyethylene glycol 3350 17 gram oral powder packet (Miralax) 17 g PO DAILYPRN PRN constipation 02/16/25
tramadol 50 mg tablet 50 mg PO BIDPRN PRN moderate pains 02/16/25
Review of Systems
-
A 12 point ROS was completed and negative except as noted: Yes
Constitutional: Denies Fever
Respiratory: Reports See HPI
Cardiac: Denies Chest Pain or Palpitations
Physical Exam
Vital Signs
Vital Signs
Temp Pulse Resp BP Pulse Ox
98.4 F 86 23 142/90 96
02/16/25 12:14 02/16/25 18:15 02/16/25 12:45 02/16/25 18:01 02/16/25 18:15
Physical Exam
General: Comfortable and Conversant
HEENT: Anicteric, Moist mucous membranes and Oxygen (Nasal Cannula)
Respiratory: Rales (Diffuse) and Non Labored Respirations
Cardiac: S1/S2 and Regular Rhythm
GI: Soft and Other (Slightly distended with hypoactive bowel sounds)
Rectal: Deferred by Provider
Genito-urinary: Clear Urine
Musculoskeletal: No Clubbing, No Cyanosis and No Edema
Skin: Warm and Dry
Neuro: Awake, Alert, Oriented and Nonfocal/grossly intact
Psych: Calm
Laboratory Results
-
02/16/25 12:28
02/16/25 12:28
Laboratory Results
Total Bilirubin 0.4 mg/dl (0.2-1.3) 02/16/25 12:28
AST 23 U/L (14-36) 02/16/25 12:28
ALT 18 U/L (0-35) 02/16/25 12:28
Alkaline Phosphatase 73 U/L (38-126) 02/16/25 12:28
Troponin I < 0.012 ng/ml 02/16/25 12:28
Chest X-Ray:
Coarse interstitial markings are similar to the prior study, likely interstitial fibrosis. Consolidation in the left lower lobe is also similar to prior study and suggests chronic atelectasis although pneumonia is difficult to exclude
Data Reviewed
-
CT Scan: Report Reviewed by me
Lab Data: Labs Reviewed by me
Impression/Plan
-
Acute Hypoxic Respiratory Insufficiency, suspect related to progression of underlying lung disease
-Consult Pulmonary
-Continue supplemental oxygen
-Check Echocardiogram to evaluate for possible progression of pulmonary hypertension
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
-Continue levetiracetam - Check level
Essential Hypertension
-Continue amlodipine, hydralazine
Hypothyroidism
-Continue levothyroxine
Chronic Hyponatremia - Sodium level is stable
-Continue furosemide
-Continue sodium tabs
Chronic Constipation
-Continue Senna 2 tabs BID
-Add MiraLAX
GERD
-Continue Protonix
DVT proph: SCDs
Code Status: DNR
--- NOTE | 2025-02-16 20:10 | W.PN.UPDATE ---
Update Note
Progress Note Update
I could not get any information from the patient is vague historian
Information gathered by chart review and speaking with the ER staff and daughter
This note serves as an addendum to the H&P by sales consultant En LANG
HPI
89F assisted living resident of [facility], HX hypertension, seizure disorders, prior herpes encephalitis, chronic hyponatremia, orthostatic hypotension, GERD seen at ER :
- increased dyspnea on exertion and muscle pains.
- significant increased dyspnea on exertion over the past few weeks.
- has been experiencing generalized pains for which she has been receiving Tramadol at the assisted living facility.
- There has been some concern about increased constipation recently.
ROS:
denies any cough, chest pain, or lower extremity edema.
Upon arrival to the emergency department patient was noted to be mildly hypoxic at 89% on Room Air.
Relevant VS
Temp Pulse Resp BP Pulse Ox
98.4 F 85 23 142/90 97
02/16/25 12:14 02/16/25 19:30 02/16/25 12:45 02/16/25 18:01 02/16/25 19:30
PE
Gen: Not toxic
HEENT: anicteric
Neck: supple
Lungs: diffuse rales
Cor: S1S2 , RRR
Abdomen:� Slightly distended with hypoactive bowel sounds
DATASTAGE DEVELOPER: AAO3
MS:no edema
Psych: flat affect
Relevant Data
11/16/23 02/16/25
06:15 12:28
WBC 10.2
Hgb 12.5
Plt Count 351
Sodium 128 L 132 L
Creatinine 0.8
eGFR > 60.00
Troponin I < 0.012
Rii-A-Vplsxqcpryb Pept 466
02/16/25 CXR:
Coarse interstitial markings are similar to the prior study, likely interstitial fibrosis.
Consolidation in the left lower lobe is also similar to prior study and suggests chronic atelectasis although pneumonia is difficult to exclude
10/24/23 CT Chest PE Study
- Limited by respiratory motion degradation.
- No filling defect to suggest pulmonary embolism with confidence to the proximal segmental branches. If indicated, further evaluation/follow-up may be considered with repeat angiography.
- Stable dilated main pulmonary outflow tract suggesting an element of pulmonary artery hypertension.
- UIP pattern of interstitial fibrosis.
The possibility of mild interstitial edema cannot be entirely excluded in the proper clinical setting.
- Stable diffuse ectasia of the thoracic aorta.
- Interval development of moderate T9 compression deformity.
10/23/23 TTE
- LVEF 65 to 70%, no regional wall motion abnormalities
- enlarged RV size with moderately reduced RV systolic function
- mild to moderate MR, mild AR, mild to moderate TR.
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
Last hospitalist admission: Date of Admission: 10/23/23 - Date of Discharge: 10/29/23
Discharge Diagnosis/Procedures:
- Pulmonary fibrosis, multiple vertebral compression fractures, ambulatory dysfunction, hyponatremia.
ASSESSMENT & PLAN
Worsening chronic dyspnea + acute on chr hypoxic RI
DDX: Possible IPF ( UIP pattern suggested by CTC )
DDX: ILD associated CTDx , less likely hypersensitivity pneumonitis.
- denies any occupational or environmental exposures.
- no history of medications known to cause pulmonary fibrosis.
- IV Decadron 10 mg at ER but - role for steroids only if groundglass opacities on CAT scan thus order routine CT chest without contrast
- PHT due to due to underlying lung disease
- Home O2 assessment before discharge
- Outpatient pulmonary follow-up
- Pul consult
No evidence of acute HF
T9 compression fracture
Seizure disorder
Chronic hyponatremia; borderline
Orthostatic hypotension HX
N RFTs
- Maintain strict fluid restriction: Patient not likely compliant per discussion with nursing
- continue Lasix 20 mg daily plus NaCl 1000mg BID
- Follow BMP
Chronic Constipation
- c/w Senna 2 tabs BID
-Add MiraLAX
DVT Px: LMWH
DNR
IP TLM
--- NOTE | 2025-02-16 22:00 | PTCARENOTE ---
Pt arrived to rm [id number] from ED, pullover assist x4 from stretcher into bed. Pt is AAOx2 to self and place, not time. Bed alarm in place d/t high fall risk. Pt oriented to room, call lopez in reach. VSS on admission. Pt reports severe pain
throughout her body; scheduled tylenol 1000mg provided.
[2025-02-16] MEDS: APRESOLINE 25 MG PO (22:10)
[2025-02-16] MEDS: KEPPRA 2000 MG PO (22:10)
[2025-02-16] MEDS: TYLENOL 1000 MG PO (22:10)
[2025-02-16] MEDS: SENOKOT 17.2 MG PO (22:10)
[2025-02-16] MEDS: SODIUM CHLORIDE 1 GRAM PO (22:11)
[2025-02-17] VITALS (7 sets, daily range): BP systolic 115–163; BP diastolic 74–97; BMI 22.5
[2025-02-17] MEDS: SYNTHROID 25 MCG PO (05:37)
[2025-02-17 06:00] LABS: Hematocrit 35.5 % (37.0-47.0); Hemoglobin 11.8 g/dL (12.0-16.0); Mean Corp Hgb Conc. 33.2 g/dL (33.0-37.0); Mean Corpuscular Volume 94.2 fL (81.0-99.0); Platelet Count 322 10^3/uL (130-400); Red Cell Dist. Width 12.9 % (11.5-14.5)
[2025-02-17 06:25] LABS: Blood Urea Nitrogen 16 mg/dl (7-17); Calcium 9.2 mg/dl (8.4-10.2); Carbon Dioxide 24 mmol/L (22-30); Chloride 102 mmol/L (98-107); Estimated Creatinine Clearance 49 ml/min; Glucose 123 mg/dl (70-99); Potassium 5.3 mmol/L (3.5-5.1); Sodium 132 mmol/L (135-145); eGFR > 60.00
[2025-02-17] MEDS: FEOSOL 325 MG PO (08:51)
[2025-02-17] MEDS: APRESOLINE 25 MG PO ×3 (08:51→21:41)
[2025-02-17] MEDS: CLARITIN 10 MG PO (08:51)
[2025-02-17] MEDS: SODIUM CHLORIDE 1 GRAM PO ×2 (08:51→21:41)
[2025-02-17] MEDS: SENOKOT 17.2 MG PO ×2 (08:52→21:42)
[2025-02-17] MEDS: NORVASC 5 MG PO (08:52)
[2025-02-17] MEDS: TYLENOL 1000 MG PO ×3 (08:52→21:42)
[2025-02-17] MEDS: PROTONIX 40 MG PO (08:52)
[2025-02-17] MEDS: LASIX 20 MG PO (08:52)
[2025-02-17] MEDS: MIRALAX 17 GRAMS PO (08:53)
[2025-02-17] MEDS: KEPPRA 1500 MG PO (08:56)
--- NOTE | 2025-02-17 09:20 | CON.PUL ---
Consultation
Consultation Request
Date/Time Consultation Requested: 02/17/25
Date/Time Consultation Performed: 02/17/25
Performing Provider: [place]
Reason for Consultation: IPF
Medical History
-
History of Present Illness:
Patient is an 89-year-old female with previous history of IPF following with ann-marie Leon hypertension, hypertension, seizure disorder presenting with increased dyspnea on exertion and joint/muscle aches. She was notably 89% on room air on
arrival to the ER. Underwent CT scan which indicates progression of IPF compared to prior.
Daughter reports that she had been taking increasing pain medications for arthritic type complaints, tramadol twice a day. She also notes a lack of mobility in her fingers.
Past Medical History
Past Medical History: Other (see list below)
Social History
Tobacco: Non-smoker
Alcohol: None
Drug: None
Family History
Family History: Reviewed & Not Pertinent
Allergies / Home Medications
Allergies
Allergy/AdvReac Type Severity Reaction Status Date / Time
erythromycin lactobionate Allergy Rash Verified 10/23/23 20:05
(From Erythrocin)
Iodinated Contrast Media Allergy Hives Verified 10/23/23 20:05
Penicillins Allergy Rash Verified 10/23/23 08:27
Sulfa (Sulfonamide Allergy Rash Verified 10/23/23 08:27
Antibiotics)
Home Medications
�Medication �Instructions �Recorded �Confirmed �Last Taken �Type
pantoprazole 40 mg tablet,delayed 40 mg PO DAILY Gastrointestinal 05/04/10 02/16/25 02/15/25 History
release issue
levetiracetam 500 mg tablet 1,500 mg PO DAILY Neurological 03/09/19 02/16/25 02/15/25 History
Condition
sennosides 8.6 mg tablet (senna) 17.2 mg PO BID Constipation 06/04/23 02/16/25 02/15/25 History
acetaminophen 500 mg tablet 1,000 mg PO TID mild Pain 0402/16/25 02/15/25 History
(Tylenol Extra Strength)
amlodipine 5 mg tablet 5 mg PO DAILY Blood Pressure 10/23/23 02/16/25 02/15/25 History
ferrous sulfate 325 mg (65 mg 325 mg PO DAILY Supplement 10/23/23 02/16/25 02/15/25 History
iron) tablet
hydralazine 25 mg tablet 25 mg PO TID Blood Pressure 10/23/23 02/16/25 02/15/25 History
levetiracetam 500 mg tablet 2,000 mg PO HS Seizures 10/23/23 02/16/25 02/15/25 History
levothyroxine 25 mcg tablet 25 mcg PO DAILY Thyroid 10/23/23 02/16/25 02/16/25 History
furosemide 20 mg tablet 20 mg PO DAILY 30 days #30 tabs 10/29/23 02/16/25 02/15/25 Rx
sodium chloride 1,000 mg soluble 1,000 mg PO BID 10 days #20 tabs 10/29/23 02/16/25 02/15/25 Rx
tablet
loratadine 10 mg tablet 10 mg PO DAILY 02/16/25 02/16/25 02/15/25 History
magnesium hydroxide 400 mg/5 mL 2,400 mg PO DAILYPRN PRN 02/16/25 02/16/25 02/12/25 History
oral suspension (Milk of Magnesia) constipation
polyethylene glycol 3350 17 gram 17 g PO DAILYPRN PRN constipation 02/16/25 02/16/25 02/13/25 History
oral powder packet (Miralax)
tramadol 50 mg tablet 50 mg PO BIDPRN PRN moderate pains 02/16/25 02/16/25 02/16/25 History
Review of Systems
-
History Source: Patient and Family
All other systems: Negative unless noted
Vitals / Labs / Diagnostic Testing
Vital Signs
Temp Pulse Resp BP Pulse Ox
98.2 F 80 20 163/97 92
02/17/25 07:35 02/17/25 07:35 02/17/25 07:35 02/17/25 07:35 02/17/25 09:00
Lab Data
02/17/25 05:52
02/17/25 05:52
Microbiology
02/16/25 12:28 Nasal Swab Influenza Types A & B (ILANA) - Final
Negative for Influenza A & B, NAAT
Negative results must be combined with clinical observations
and patient history.
Nucleic Acid Amplification test (NAAT)performed on the
[employer] platform.
Diagnostic Testing:
Physical Exam
-
HEENT: Normocephalic, Anicteric and Moist Mucous Membranes
Cardiovascular: S1/S2 and Regular Rhythm
Respiratory: Rales and Non-Labored Respirations
GI: Soft, Non Distended and Non Tender
Neurology: Awake, Alert and Other (does not answer as well, confused)
Skin: Warm and Dry
General: Comfortable and Other (NAD)
Assessment
-
Patient is an 89-year-old female with previous history of IPF following with ann-marie Leon hypertension, hypertension, seizure disorder presenting with increased dyspnea on exertion and joint/muscle aches. She was notably 89% on room air on
arrival to the ER. Underwent CT scan which indicates progression of IPF compared to prior. We are consulted for evaluation.
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
Acute on chronic shortness of breath
Diffuse muscle and joint pain, increased deformity of fingers
Condition present prior to admission
Pulmonary Fibrosis--follows with Dr. Rubi in the office/last seen 10/2024
Pulmonary Hypertension
Essential Hypertension
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
Hypothyroidism
Chronic Hyponatremia
Chronic Constipation
GERD
Vasovagal Syncope
ASCVD / Prior TIAs
Left Lumpectomy
Colon Resection
Plan
Mild hypoxemia noted on arrival, O2 ofelia 89%
Can likely wean to off, prior 6MWTs in office without baseline use of O2 at home
Home O2 evaluation
Prior history of lung disease is noted including IPF, followed by [facility]
Suspect patient has AE IPF
CXR/CT obtained indicating disease progression
Other imaging reviewed
Prednisone course added, continue taper at d/c
ECHO results reviewed with normal findings
proBNP negative on admission
Unlikely that there is a component of heart failure
Daughter reports that she had been taking increasing pain medications for arthritic type complaints, tramadol twice a day.
She also notes a lack of mobility in her fingers.
Would complete serology workup as an outpatient for rheumatoid arthritis and other autoimmune conditions
Would need to wait until off prednisone therapy to obtain accurate results
I discussed this with the daughter
Agree with PT OT, speech evaluations
If doing well in terms of rehab, can assess for discharge in the next 24 hours
Will need outpatient pulmonary evaluation in our office for PFTs and 6MWT
Reviewed with daughter
Reviewed plan of care with care team
We will follow
Diagnostic Data
Chest X-Ray:
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 There is progression of honeycombing in the right upper lobe posterolaterally. New patchy ground glass opacities in the mid to posterior left upper lobe and in
the posterior right upper lobe. These are consistent with alveolitis. Right lower lobe bulla measuring 3.4 cm in diameter. This is related to obstructive lung disease. Prominence of the central pulmonary arterial structures, consistent with
pulmonary arterial hypertension. New moderate T5 compression fracture. Progression of T10 compression fracture, now moderate. Moderate T8 compression fracture is stable. Severe coronary calcifications. 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
aneurysm. Stable diffuse ectasia of thoracic aorta.
Echo: 02/17/25- 1. Ejection fraction is 65-70% by visual assessment.
2. No regional wall motion abnormalities.
3. Right ventricular size and systolic function are within normal limits.
4. Aortic valve sclerosis of multiple aortic cusps; but no aortic stenosis. Mild to moderate aortic regurgitation.
5. Mild to moderate tricuspid regurgitation. Estimated pulmonary artery pressure of 35 mmHg, assuming a right atrial pressure of 3 mmHg.
6. Compared to a prior transthoracic echocardiogram study from 10/23/23 no significant changes are seen.
PFT's:
Reports and relevant images were personally reviewed.
Total time spent on this consultation __75__ minutes which includes review of history, physical exam, medications, laboratory data, personal review of imaging, extensive review of outpatient records, discussion with care team and respiratory therapy.
--- NOTE | 2025-02-17 10:38 | W.PN.HOSP.TC ---
Today's Communication/Plan
-
see outlined plan
Assessment / Plan
Assessment / Plan
Assessment:
Acute Hypoxic Respiratory Insufficiency, suspect related to progression of underlying lung disease
- wean O2
- CT without PE. repeat CT pending to evaluate underlying ILD
- consult pulmonary
- Echo: EF 65%, moderate TR, PASP 35
Constipation, possibly opioid induced in setting of opiates
- DC oxycodone; low dose Tramadol
- Bowel regimen
Chronic generalized pain
- hold Tramadol
- maximum TID Tylenol
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
- continue levetiracetam - Check level
Essential Hypertension
- continue amlodipine, hydralazine
Hypothyroidism
- continue levothyroxine
Chronic Hyponatremia - Sodium level is stable
- continue furosemide
- continue sodium tabs
GERD
- continue Protonix
Hyponatremia, chronic
Hyperkalemia
- continue Lasix + NACL, OFR
- monitor BMP
T9 compression fracture
DVT proph: Lovenox
Code Status: DNR
Anticipated Discharge: 24 - 48 hours
Subjective/Interval History
-
Date of Service: February 17, 2025
resting comfortably
denies SOB at present
Objective Data
-
Labs:
Laboratory Results
02/17/25
05:52
WBC 7.8
Hgb 11.8 L
Hct 35.5 L
Plt Count 322
Sodium 132 L
Potassium 5.3 H
Chloride 102
Carbon Dioxide 24
BUN 16
Creatinine 0.7
Glucose 123 H
Calcium 9.2
Vital Signs:
Vital Signs
Temp Pulse Resp BP Pulse Ox
98.2 F 80 20 163/97 92
08/15/25 07:35 02/17/25 07:35 02/17/25 07:35 02/17/25 07:35 02/17/25 09:00
Physical Exam
-
General: No Apparent Distress
HEENT: Normocephalic and Atraumatic
Respiratory: Rales (diffuse) and Non Labored Respirations
GI: Soft
Genito-urinary: No Costovertebral Tender
Neuro: AO x 3
Psych: Calm
Data Reviewed
-
Total Time Spent with Patient (in minutes): 45
Labs: Labs Reviewed by me
[2025-02-17] MEDS: ULTRAM 25 MG PO (11:38)
[2025-02-17] MEDS: DELTASONE 40 MG PO (12:48)
[2025-02-17 15:23] LABS: Procalcitonin < 0.05 ng/ml (0.0-0.25)
[2025-02-17] MEDS: LOVENOX 40 MG SC (17:33)
[2025-02-17] MEDS: REFRESH EYE DROPS (PF) 1 DROPS OPHTH (23:04)
[2025-02-17] MEDS: KEPPRA 2000 MG PO (23:06)
[2025-02-18] VITALS (7 sets, daily range): BP systolic 136–151; BP diastolic 85–96; PULSE 89; O2SAT 93; BMI 22.4
[2025-02-18] MEDS: ULTRAM 25 MG PO (04:56)
[2025-02-18] MEDS: SYNTHROID 25 MCG PO (04:56)
[2025-02-18] MEDS: CLARITIN 10 MG PO (07:57)
[2025-02-18] MEDS: MIRALAX 17 GRAMS PO (07:57)
[2025-02-18] MEDS: SENOKOT 17.2 MG PO ×2 (07:57→19:55)
[2025-02-18] MEDS: SODIUM CHLORIDE 1 GRAM PO ×2 (07:58→19:55)
[2025-02-18] MEDS: LASIX 20 MG PO (07:59)
[2025-02-18] MEDS: PROTONIX 40 MG PO (07:59)
[2025-02-18] MEDS: NORVASC 5 MG PO (07:59)
[2025-02-18] MEDS: FEOSOL 325 MG PO (08:02)
[2025-02-18] MEDS: DELTASONE 40 MG PO (08:03)
[2025-02-18] MEDS: APRESOLINE 25 MG PO ×3 (08:03→21:56)
[2025-02-18] MEDS: TYLENOL 1000 MG PO ×3 (08:03→21:56)
[2025-02-18] MEDS: KEPPRA 1500 MG PO (08:04)
[2025-02-18 09:27] LABS: Hematocrit 35.4 % (37.0-47.0); Hemoglobin 11.8 g/dL (12.0-16.0); Mean Corp Hgb Conc. 33.3 g/dL (33.0-37.0); Mean Corpuscular Volume 92.9 fL (81.0-99.0); Platelet Count 366 10^3/uL (130-400); Red Cell Dist. Width 13.3 % (11.5-14.5)
[2025-02-18 09:46] LABS: Blood Urea Nitrogen 23 mg/dl (7-17); Calcium 9.6 mg/dl (8.4-10.2); Carbon Dioxide 23 mmol/L (22-30); Chloride 99 mmol/L (98-107); Estimated Creatinine Clearance 49 ml/min; Glucose 91 mg/dl (70-99); Potassium 4.7 mmol/L (3.5-5.1); Sodium 130 mmol/L (135-145); eGFR > 60.00
--- NOTE | 2025-02-18 11:51 | W.PN.HOSP.TC ---
Addendum entered and electronically signed by Enrique Temple MD 02/18/25 13:46:
SNF recommended by PT/OT - CM made aware, will contact family to begin placement process
Original Note:
Today's Communication/Plan
-
await PT/OT evals for dispo ([facility] vs SNF)
home O2 indicated if immediate next step is [facility] will have CM setup
Assessment / Plan
Assessment / Plan
Assessment:
Acute Hypoxic Respiratory Insufficiency, suspect related to progression of underlying lung disease
- CT. No PE. 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 There is progression of honeycombing in the right upper lobe posterolaterally. New patchy ground glass opacities in the mid to posterior left upper lobe and in
the posterior right upper lobe. These are consistent with alveolitis
- Pulm following
- on steroid taper over 2 weeks
- home O2 eval: Patient is in need of oxygen at 2 liters/minute via nasal cannula continuously due to pulse oximetry of 87% on room air at exertion. Oxygen will help to improve hypoxemia. Patient is mobile within the home. DuoNeb therapy has been
tried and is ineffective in treating hypoxemia related symptoms. Oxygen is needed to improve symptoms.
- PT/OT pending eval of return to [facility] vs SNF
Possible rheumatoid arthritis
- evaluation with OP Rheumatology/OP serology in 4-6 weeks (after steroid taper)
Constipation, possibly opioid induced in setting of opiates
- low dose Tramadol
- Bowel regimen at discharge
Chronic generalized pain
- hold Tramadol
- maximum TID Tylenol
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
- continue levetiracetam
Essential Hypertension
- continue amlodipine, hydralazine
Hypothyroidism
- continue levothyroxine
Chronic Hyponatremia - Sodium level is stable 130+
- continue furosemide
- continue sodium tabs
GERD
- continue Protonix
Hyponatremia, chronic
Hyperkalemia
- continue Lasix + NACL, OFR
- monitor BMP
T9 compression fracture
DVT proph: Lovenox
Code Status: DNR/DNI
Anticipated Discharge: Within 24 hours
Subjective/Interval History
-
Date of Service: February 18, 2025
resting comfortably
breathing improved, less labored
Objective Data
-
Labs:
Laboratory Results
02/18/25
08:49
WBC 12.5 H
Hgb 11.8 L
Hct 35.4 L
Plt Count 366
Sodium 130 L
Potassium 4.7
Chloride 99
Carbon Dioxide 23
BUN 23 H
Creatinine 0.7
Glucose 91
Calcium 9.6
Vital Signs:
Vital Signs
Temp Pulse Resp BP Pulse Ox
97.4 F 90 18 147/85 93
02/18/25 11:36 02/18/25 11:36 02/18/25 11:36 02/18/25 11:36 02/18/25 11:36
I&O
02/17/25 02/18/25 02/19/25
06:59 06:59 06:59
Intake Total 1160 / 1160
Balance 1160 / 1160
Physical Exam
-
General: No Apparent Distress
HEENT: Normocephalic and Atraumatic
Respiratory: Rales (faint); Negative Wheezes
Cardiac: Regular Rhythm and S1/S2
GI: Soft and Nontender
Musculoskeletal: No Edema
Neuro: AO x 3
Psych: Calm
Data Reviewed
-
Total Time Spent with Patient (in minutes): 41
Labs: Labs Reviewed by me
--- NOTE | 2025-02-18 16:01 | CM ---
Patient seen bedside, initial assessment completed. Patient is an 89 y/o female past medical history of pulmonary fibrosis, pulmonary hypertension, essential hypertension, seizure disorder, and chronic hyponatremia who presents with increased
dyspnea on exertion and muscle pains. On room air.
Patient resides at [facility]. Patient is independent w/ use of RW and w/c. Patient is assisted w/ transfers, bed mobility, and bathing. Patient uses O2 at night.
PCP: Tarik Mayo
Pharmacy: [facility]
Therapy rec SNF at d/c. Patient agreeable to referral to [facility]. Patient will need insurance auth
Home O2 assessed, patient requiring 2L
Plan: [facility]
[2025-02-18] MEDS: LOVENOX 40 MG SC (17:04)
[2025-02-18] MEDS: KEPPRA 2000 MG PO (21:56)
[2025-02-19 03:18] VITALS: BP 127/84
[2025-02-19 06:00] VITALS: BMI 21.7
[2025-02-19] MEDS: SYNTHROID 25 MCG PO (06:16)
[2025-02-19 08:10] VITALS: BP 154/96
[2025-02-19 09:01] LABS: Hematocrit 34.9 % (37.0-47.0); Hemoglobin 11.7 g/dL (12.0-16.0); Mean Corp Hgb Conc. 33.5 g/dL (33.0-37.0); Mean Corpuscular Volume 94.1 fL (81.0-99.0); Platelet Count 338 10^3/uL (130-400); Red Cell Dist. Width 13.1 % (11.5-14.5)
[2025-02-19] MEDS: KEPPRA 1500 MG PO (09:03)
[2025-02-19] MEDS: LASIX 20 MG PO (09:03)
[2025-02-19] MEDS: NORVASC 5 MG PO (09:04)
[2025-02-19] MEDS: SENOKOT 17.2 MG PO ×2 (09:04→21:12)
[2025-02-19] MEDS: CLARITIN 10 MG PO (09:04)
[2025-02-19] MEDS: PROTONIX 40 MG PO (09:04)
[2025-02-19] MEDS: DELTASONE 40 MG PO (09:04)
[2025-02-19] MEDS: FEOSOL 325 MG PO (09:04)
[2025-02-19] MEDS: SODIUM CHLORIDE 1 GRAM PO ×2 (09:04→21:12)
[2025-02-19] MEDS: APRESOLINE 25 MG PO ×2 (09:04→21:12)
[2025-02-19] MEDS: MIRALAX 17 GRAMS PO (09:05)
[2025-02-19] MEDS: TYLENOL 1000 MG PO ×3 (09:05→21:11)
[2025-02-19 09:29] LABS: Blood Urea Nitrogen 23 mg/dl (7-17); Calcium 9.2 mg/dl (8.4-10.2); Carbon Dioxide 24 mmol/L (22-30); Chloride 99 mmol/L (98-107); Estimated Creatinine Clearance 43 ml/min; Glucose 78 mg/dl (70-99); Potassium 4.3 mmol/L (3.5-5.1); Sodium 132 mmol/L (135-145); eGFR > 60.00
[2025-02-19 11:27] VITALS: BP 125/86
--- NOTE | 2025-02-19 12:09 | W.PN.HOSP.TC ---
Today's Communication/Plan
-
prn suppository for BMs; continue oral regimen
continue steroids
medically stable for dc to SNF pending placement. CM aware.
Assessment / Plan
Assessment / Plan
Assessment:
Acute Hypoxic Respiratory Insufficiency, suspect related to progression of underlying lung disease
- CT. No PE. 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 There is progression of honeycombing in the right upper lobe posterolaterally. New patchy ground glass opacities in the mid to posterior left upper lobe and in
the posterior right upper lobe. These are consistent with alveolitis
- Pulm following
- continue prednisone, decrease by 10mg every 72 hours to off.
- home O2 eval: Patient is in need of oxygen at 2 liters/minute via nasal cannula continuously due to pulse oximetry of 87% on room air at exertion. Oxygen will help to improve hypoxemia. Patient is mobile within the home. DuoNeb therapy has been
tried and is ineffective in treating hypoxemia related symptoms. Oxygen is needed to improve symptoms.
- PT/OT - SNF recommended.
Possible rheumatoid arthritis
- evaluation with OP Rheumatology/OP serology in 4-6 weeks (after steroid taper)
Constipation, possibly opioid induced in setting of opiates
- Bowel regimen at discharge
Chronic generalized pain
- low dose Tramadol
- maximum TID Tylenol
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
- continue levetiracetam
Essential Hypertension
- continue amlodipine, hydralazine
Hypothyroidism
- continue levothyroxine
Chronic Hyponatremia - Sodium level is stable 130+
- continue furosemide
- continue sodium tabs
GERD
- continue Protonix
Hyponatremia, chronic
Hyperkalemia
- continue Lasix + NACL, OFR
- monitor BMP
T9 compression fracture
DVT proph: Lovenox
Code Status: DNR/DNI
Anticipated Discharge: 24 - 48 hours
Subjective/Interval History
-
Date of Service: February 19, 2025
resting comfortably, no complaints at present
Objective Data
-
Labs:
Laboratory Results
02/19/25
08:30
WBC 9.7
Hgb 11.7 L
Hct 34.9 L
Plt Count 338
Sodium 132 L
Potassium 4.3
Chloride 99
Carbon Dioxide 24
BUN 23 H
Creatinine 0.8
Glucose 78
Calcium 9.2
Vital Signs:
Vital Signs
Temp Pulse Resp BP Pulse Ox
97.7 F 99 16 125/86 96
02/19/25 11:27 02/19/25 11:27 02/19/25 11:27 02/19/25 11:27 02/19/25 11:27
I&O
02/18/25 02/19/25 02/20/25
06:59 06:59 06:59
Intake Total 1160 / 1160 720 / 720
Balance 1160 / 1160 720 / 720
Physical Exam
-
General: No Apparent Distress
HEENT: Normocephalic and Atraumatic
Respiratory: Rales (faint); Negative Wheezes
Cardiac: Regular Rhythm and S1/S2
GI: Soft and Nontender
Neuro: AO x 3
Psych: Calm
Data Reviewed
-
Total Time Spent with Patient (in minutes): 41
Labs: Labs Reviewed by me
--- NOTE | 2025-02-19 12:54 | W.PN.PUL3 ---
Today's Communication / Plan
-
- Continue prednisone taper as prescribed
- Assess for home O2 need prior to discharge
- Out patient follow up with [facility] Pulmonary clinic
- Pulmonary team will sign off, please call as needed.
Assessment
-
Patient is an 89-year-old female with previous history of IPF following with Dr. Rubi, pul hypertension, hypertension, seizure disorder presenting with increased dyspnea on exertion and joint/muscle aches. She was notably 89% on room air on
arrival to the ER. Underwent CT scan which indicates progression of IPF compared to prior. We are consulted for evaluation.
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
Acute on chronic shortness of breath
Diffuse muscle and joint pain, increased deformity of fingers
Condition present prior to admission
Pulmonary Fibrosis--follows with Dr. Rubi in the office/last seen 10/2024
Pulmonary Hypertension
Essential Hypertension
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
Hypothyroidism
Chronic Hyponatremia
Chronic Constipation
GERD
Vasovagal Syncope
ASCVD / Prior TIAs
Left Lumpectomy
Colon Resection
Plan
Mild hypoxemia noted on arrival, O2 ofelia 89%. Currently on room air
Home O2 evaluation
Prior history of lung disease is noted including IPF, followed by [facility]
Suspect patient has AE IPF
CXR/CT obtained indicating disease progression
Other imaging reviewed
Prednisone course added, continue taper at d/c
ECHO results reviewed with normal findings
proBNP negative on admission
Unlikely that there is a component of heart failure
Would complete serology workup as an outpatient for rheumatoid arthritis and other autoimmune conditions
Would need to wait until off prednisone therapy to obtain accurate results
Updated daughter at bedside. Discussed course of UIP with tends to be progressive with IPF
Agree with PT OT, speech evaluations
If doing well in terms of rehab, can assess for discharge in the next 24 hours
Will need outpatient pulmonary evaluation in our office for PFTs and 6MWT
Reviewed with daughter
Reviewed plan of care with care team
Pulmonary team available as needed
Diagnostic Data
Chest X-Ray:
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 There is progression of honeycombing in the right upper lobe posterolaterally. New patchy ground glass opacities in the mid to posterior left upper lobe and in
the posterior right upper lobe. These are consistent with alveolitis. Right lower lobe bulla measuring 3.4 cm in diameter. This is related to obstructive lung disease. Prominence of the central pulmonary arterial structures, consistent with
pulmonary arterial hypertension. New moderate T5 compression fracture. Progression of T10 compression fracture, now moderate. Moderate T8 compression fracture is stable. Severe coronary calcifications. 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
aneurysm. Stable diffuse ectasia of thoracic aorta.
Echo: 02/17/25- 1. Ejection fraction is 65-70% by visual assessment.
2. No regional wall motion abnormalities.
3. Right ventricular size and systolic function are within normal limits.
4. Aortic valve sclerosis of multiple aortic cusps; but no aortic stenosis. Mild to moderate aortic regurgitation.
5. Mild to moderate tricuspid regurgitation. Estimated pulmonary artery pressure of 35 mmHg, assuming a right atrial pressure of 3 mmHg.
6. Compared to a prior transthoracic echocardiogram study from 10/23/23 no significant changes are seen.
PFT's:
Reports and relevant images were personally reviewed.
Total time spent on this consultation __45__ minutes which includes review of history, physical exam, medications, laboratory data, personal review of imaging, extensive review of outpatient records, discussion with care team and respiratory therapy.
Subjective Data
-
Date of Service:
Date of Service: February 19, 2025
Subjective:
Comfortably sitting in chair, on room air,
Review of Systems
Genitourinary: Other (No new symptoms reported)
Objective Data
Data Reviewed
Vital Signs / I&O / Oxygen:
Vital Signs
Temp Pulse Resp BP Pulse Ox
97.7 F 99 16 125/86 96
02/19/25 11:27 02/19/25 11:27 02/19/25 11:27 02/19/25 11:27 02/19/25 11:27
Intake and Output
02/18/25 02/19/25 02/20/25
06:59 06:59 06:59
Intake Total 1160 / 1160 720 / 720
Balance 1160 / 1160 720 / 720
SaO2 96
Nasal Cannula flow liters per 2
minute
Physical Exam
General: Comfortable
HEENT: Normocephalic
Cardiovascular: S1-S2
Respiratory: Crackles
GI: Soft and Non Distended
Neurology: Awake and Alert
Skin: Warm
Labs/Micro/Reports
Lab Data
02/19/25 08:30
02/19/25 08:30
Microbiology
02/17/25 06:04 Nose MRSA Screen - Final
No Methicillin Resistant Staphylococcus aureus isolated.
02/16/25 12:28 Nasal Swab Influenza Types A & B (ILANA) - Final
Negative for Influenza A & B, NAAT
Negative results must be combined with clinical observations
and patient history.
Nucleic Acid Amplification test (NAAT)performed on the
[employer] platform.
[2025-02-19] MEDS: DULCOLAX 10 MG RECTAL (13:45)
[2025-02-19 15:19] VITALS: BP 108/73
[2025-02-19 16:00] VITALS: BP 108/73; BP 118/78; PULSE 118; PULSE 130; O2SAT 95
[2025-02-19] MEDS: LOVENOX 40 MG SC (17:02)
[2025-02-19] MEDS: APRESOLINE PO (17:07)
[2025-02-19 19:30] VITALS: BP 112/74
--- NOTE | 2025-02-19 21:57 | PTCARENOTE ---
Lidia AMES aware that pt had a Levetiracetam level drawn on 02/17 which came back at 98.5. pt has been receiving her dose of the medication since then. Lidia placed this evenings dose on hold for now. pt updated on change in medication for
tonight.
[2025-02-20] VITALS (7 sets, daily range): BP systolic 91–151; BP diastolic 57–93; PULSE 99–104; O2SAT 95–99; BMI 20.6
[2025-02-20] MEDS: SYNTHROID 25 MCG PO (06:22)
[2025-02-20 06:40] LABS: Hematocrit 37.1 % (37.0-47.0); Hemoglobin 12.3 g/dL (12.0-16.0); Mean Corp Hgb Conc. 33.2 g/dL (33.0-37.0); Mean Corpuscular Volume 94.6 fL (81.0-99.0); Platelet Count 348 10^3/uL (130-400); Red Cell Dist. Width 13.2 % (11.5-14.5)
[2025-02-20 06:50] LABS: Blood Urea Nitrogen 29 mg/dl (7-17); Calcium 9.0 mg/dl (8.4-10.2); Carbon Dioxide 25 mmol/L (22-30); Chloride 99 mmol/L (98-107); Estimated Creatinine Clearance 38 ml/min; Glucose 77 mg/dl (70-99); Potassium 4.6 mmol/L (3.5-5.1); Sodium 132 mmol/L (135-145); eGFR > 60.00
[2025-02-20] MEDS: DELTASONE 40 MG PO (09:53)
[2025-02-20] MEDS: KEPPRA 1500 MG PO (09:53)
[2025-02-20] MEDS: SODIUM CHLORIDE 1 GRAM PO (09:53)
[2025-02-20] MEDS: SENOKOT 17.2 MG PO (09:53)
[2025-02-20] MEDS: PROTONIX 40 MG PO (09:54)
[2025-02-20] MEDS: NORVASC 5 MG PO (09:54)
[2025-02-20] MEDS: APRESOLINE 25 MG PO (09:54)
[2025-02-20] MEDS: FEOSOL 325 MG PO (09:54)
[2025-02-20] MEDS: CLARITIN 10 MG PO (09:54)
[2025-02-20] MEDS: TYLENOL 1000 MG PO ×2 (09:54→15:51)
[2025-02-20] MEDS: LASIX 20 MG PO (09:54)
[2025-02-20] MEDS: MIRALAX 17 GRAMS PO (09:55)
--- NOTE | 2025-02-20 12:30 | W.PN.HOSP.TC ---
Today's Communication/Plan
-
dc
Assessment / Plan
Assessment / Plan
89yo F with PMHX of pulmonary fibrosis, pulmonary HTN, HTN, seizure d/o, chronic hyponatremia came with increased dyspne, managed for IPF flare. 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 Patient
weaned off O2 and tapering prednisone advised. Echo with EF 65-70% no regional wall motion abnormalities, mild-moderate AR and TR, but unlikely cardiac component as BNP low 466. As patient remained on RA and oral prednisone taper planned - medically
stable to be d/c to rehab with outpatient pulm referral.
A/P:
#Acute Hypoxic Respiratory Insufficiency, suspect related to progression of underlying lung disease
CT. No PE. 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 There is progression of honeycombing in the right upper lobe posterolaterally. New patchy ground glass opacities in the mid to posterior left upper lobe and in
the posterior right upper lobe. These are consistent with alveolitis
Pulm following: - continue prednisone, decrease by 10mg every 72 hours to off.
home O2 eval: Patient is in need of oxygen at 2 liters/minute via nasal cannula continuously due to pulse oximetry of 87% on room air at exertion. Oxygen will help to improve hypoxemia. Patient is mobile within the home. DuoNeb therapy has been
tried and is ineffective in treating hypoxemia related symptoms. Oxygen is needed to improve symptoms.
PT/OT - SNF recommended.
#Possible rheumatoid arthritis
evaluation with serology in 4-6 weeks (after steroid taper)
#Constipation, possibly opioid induced in setting of opiates
Bowel regimen at discharge
#Chronic generalized pain
low dose Tramadol
maximum TID Tylenol
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
#Essential Hypertension
#Hypothyroidism
#Chronic Hyponatremia
#GERD
cont home meds
#Hyperkalemia
resolved
#T9 compression fracture
pain mgmt as needed
DVT ppx lovenox
DNR/DNI
I have spent at least 36min reviewing chart, test results, communication with consultants and providing direct patient care
Anticipated Discharge: Today
Subjective/Interval History
-
Date of Service: February 20, 2025
Objective Data
-
Labs:
Laboratory Results
02/20/25
05:44
WBC 9.4
Hgb 12.3
Hct 37.1
Plt Count 348
Sodium 132 L
Potassium 4.6
Chloride 99
Carbon Dioxide 25
BUN 29 H
Creatinine 0.9
Glucose 77
Calcium 9.0
Vital Signs:
Vital Signs
Temp Pulse Resp BP Pulse Ox
97.2 F 91 22 98/68 95
02/20/25 11:28 02/20/25 11:28 02/20/25 11:28 02/20/25 11:28 02/20/25 11:28
I&O
02/19/25 02/20/25 02/21/25
06:59 06:59 06:59
Intake Total 720 / 720 1200 / 1200
Balance 720 / 720 1200 / 1200
Review of Systems
-
History Source: Patient
All other systems: Reviewed and negative
Physical Exam
-
General: No Apparent Distress
HEENT: Normocephalic
Respiratory: Crackles (b/l diffuse)
Cardiac: Regular Rhythm
GI: Soft, Nontender and Nondistended
Skin: Warm
Neuro: Awake, Alert, Oriented and AO x 3
Psych: Calm
--- NOTE | 2025-02-20 12:34 | W.DCSUMMARY ---
Addendum entered and electronically signed by Rich Jensen MD 02/21/25 09:44:
#Chronic pain, opioid dependent
#Acute T5 compression fracture is new - No significant retropulsion
#T8 compression fracture is stable
#old healed right rib fractures
Original Note:
Discharge Summary
Discharge Data
Date of Admission: 02/16/25
Date of Discharge: 02/20/25
-
Pending Results: No
Hospital Course
89yo F with PMHX of pulmonary fibrosis, pulmonary HTN, HTN, seizure d/o, chronic hyponatremia came with increased dyspne, managed for IPF flare. 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 Patient
weaned off O2 and tapering prednisone advised. Echo with EF 65-70% no regional wall motion abnormalities, mild-moderate AR and TR, but unlikely cardiac component as BNP low 466. As patient remained on RA and oral prednisone taper planned - medcially
stable to be d/c to rehab with outpatient pulm referral.
I have spent at least 36min reviewing chart, test results, communication with consultants and providing direct patient care
patient was managed for:
#Acute Hypoxic Respiratory Insufficiency, suspect related to progression of underlying lung disease
#Possible rheumatoid arthritis
#Constipation, possibly opioid induced in setting of opiates
#Chronic generalized pain
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
#Essential Hypertension
#Hypothyroidism
#Chronic Hyponatremia
#GERD
#Hyperkalemia
#T9 compression fracture
#T10 compression Fx
Discharge Plan
-
Patient Disposition: [facility]/SNF
Discharge Diagnosis/Procedures: pulmonary fibrosis flare
Diet: Regular
Activity: As tolerated
Referrals:
Tarik Mayo I., [Family Provider, Internal Medicine]
Dee Dee Rubi MD [Active, Pulmonary Medicine] - in two to three weeks
Referral Note: PFT/6MWT
Prescriptions:
New
prednisone 10 mg Tablet
See Rx Instructions .ROUTE .COMPLEX Qty: 30 0RF
Rx Instructions:
Take By Mouth:
40 mg daily x3 days, 30 mg daily x3 days,
20 mg daily x3 days, 10 mg daily x3 days.
Continued
pantoprazole 40 MG tablet,delayed release (DR/EC)
40 mg PO DAILY
levetiracetam 500 MG tablet
1,500 mg PO DAILY
sennosides [senna] 8.6 mg Tablet
17.2 mg PO BID
levetiracetam 500 mg Tablet
2,000 mg PO HS
hydralazine 25 mg Tablet
25 mg PO TID
amlodipine 5 mg Tablet
5 mg PO DAILY
acetaminophen [Tylenol Extra Strength] 500 mg Tablet
1,000 mg PO TID
levothyroxine 25 mcg Tablet
25 mcg PO DAILY
ferrous sulfate 325 mg (65 mg iron) Tablet
325 mg PO DAILY
furosemide 20 mg Tablet
20 mg PO DAILY 30 Days Qty: 30 0RF
sodium chloride 1,000 mg Tablet,Soluble
1,000 mg PO BID 10 Days Qty: 20 0RF
polyethylene glycol 3350 [Miralax] 17 gram Powder In Packet
17 g PO DAILYPRN PRN (Reason: constipation)
tramadol 50 mg Tablet
50 mg PO BIDPRN PRN (Reason: moderate pains)
magnesium hydroxide [Milk of Magnesia] 400 mg/5 mL Suspension
2,400 mg PO DAILYPRN PRN (Reason: constipation)
loratadine 10 mg Tablet
10 mg PO DAILY
Discharge Orders:
Discharge Patient (As Directed); Ordered 02/20/25
Ordered By: Rich Jensen
Discharge Date and Time
Print Language: ARABIC
--- NOTE | 2025-02-20 14:17 | CM ---
CM reviewed chart, patient seen bedside, for discharge today to [facility]. Auth approved via [employer], 02/20-02/24, next review 02/24, auth #[id number], updates to [phone]. Auth info provided to Misti at [facility]. Patient seen bedside, aware of d/c
plan. IMM verbally reviewed, provided with copy, placed in chart. Call to patients daughter, Lorie, number and cost provided for [email or web address] ($90, ), 5:30 p.m. WC Van transport. CM will continue to follow for all discharge planning needs.
Plan; [facility], 5:30 p.m. [facility]
Report: [phone]
[2025-02-20] MEDS: APRESOLINE PO (15:40)
[2025-02-20] MEDS: LOVENOX SC (17:17)
--- NOTE | 2025-02-21 07:41 | PN.CDI ---
CDI
- -
CDI:
Physician Documentation Request
Admit Date: 02/16/25 19:40
Dear Doctor Camila,
Please review the following and provide your response in the progress notes.
Clinical Indicators:
The diagnosis of new compression fracture was included in the signed 02/17 CT Chest.
- 02/17 CT Chest 'New moderate T5 compression fracture. Progression of T10 compression fracture, now moderate'
- 02/20 PN 'T9 compression fracture'
Please indicate in your progress notes if you are in agreement that the above diagnosis is valid for this patient:
____ - New moderate T5 compression fracture. Progression of T10 compression fracture is a valid diagnosis (Please include it in your progress notes)
____ - New moderate T5 compression fracture. Progression of T10 compression fracture is not a valid diagnosis for this patient
____ - Other
____ - Unable to determine
Use of terms such as suspected, likely, concern for, or probable are acceptable for a diagnosis that is being evaluated, monitored or treated as if it exists and can be coded in the inpatient setting, when documented at the time of discharge.
Thank you,
Ronal Mo RN
CDI Specialist
Please use your independent medical judgment in providing your response.
--- NOTE | 2025-02-21 07:47 | PN.CDI ---
CDI
- -
CDI:
Physician Documentation Request
Admit Date: 02/16/25 19:40
Dear Doctor Camila,
Please review the following and provide your response in the progress notes.
Clinical Indicators:
- 02/20 PN 'Constipation, possibly opioid induced in setting of opiates'
- 02/17 H&P 'has been experiencing generalized pains for which she has been receiving Tramadol'
- 25 mg tramadol given x 2
If possible, please provide further specificity as outlined below:
Opioid use with dependence
Opioid dependence
Other (please specify)
Use of terms such as suspected, likely, concern for, or probable (associated with a specific diagnosis that is being evaluated, monitored, or treated as if it exists) are acceptable and can be coded in the inpatient setting, when documented at the
time of discharge.
Thank you,
Ronal Mo RN
CDI Specialist
Please use your independent medical judgment in providing your response.
== END 2025-02-20 18:56 | DRG 197 ==
LOC: 4 WEST ACU 19:40
PROVIDERS: Internal Medicine; Physician Assistant Medical; ADMITTING PHYSICIAN Internal Medicine; ATTENDING PHYSICIAN Internal Medicine; EMERGENCY PHYSICIAN Student in an Organized Health Care Education/Training Program; FAMILY PHYSICIAN Internal Medicine; OTHER PHYSICIAN Internal Medicine
DX: J84.112 Idiopathic pulmonary fibrosis (principal); G40.909 Epilepsy, unspecified, not intractable, without status epilepticus; B94.8 Sequelae of other specified infectious and parasitic diseases; E87.1 Hypo-osmolality and hyponatremia; M48.54XA Collapsed vertebra, not elsewhere classified, thoracic region, initial encounter for fracture; F11.20 Opioid dependence, uncomplicated; R09.02 Hypoxemia; I27.20 Pulmonary hypertension, unspecified; I10 Essential (primary) hypertension; E03.9 Hypothyroidism, unspecified; G89.29 Other chronic pain; K59.09 Other constipation; I25.10 Atherosclerotic heart disease of native coronary artery without angina pectoris; K21.9 Gastro-esophageal reflux disease without esophagitis; I95.1 Orthostatic hypotension; I08.3 Combined rheumatic disorders of mitral, aortic and tricuspid valves; K59.03 Drug induced constipation; E87.5 Hyperkalemia; Z66 Do not resuscitate; Z11.52 Encounter for screening for COVID-19; Z86.73 Personal history of transient ischemic attack (TIA), and cerebral infarction without residual deficits; Z79.899 Other long term (current) drug therapy
CPT/HCPCS: 71046; 71250; 74018; 80048; 80053; 80177; 83880; 84145; 84443; 84484; 85025; 85027; 87070; 87502; 87811; 93005; 93306; 96374; 97163; 97166; 97530; 97535; 99285

== ENCOUNTER → 2025-02-22 09:34 | Outpatient (REF) | payer BC, OTHER, SELFPAY ==
[2025-02-22 09:52] LABS: Hematocrit 31.5 % (37.0-47.0); Hemoglobin 10.6 g/dL (12.0-16.0); Mean Corp Hgb Conc. 33.7 g/dL (33.0-37.0); Mean Corpuscular Volume 93.5 fL (81.0-99.0); Platelet Count 315 10^3/uL (130-400); Red Cell Dist. Width 13.2 % (11.5-14.5)
[2025-02-22 11:06] LABS: Blood Urea Nitrogen 26 mg/dl (7-17); Calcium 9.2 mg/dl (8.4-10.2); Carbon Dioxide 21 mmol/L (22-30); Chloride 100 mmol/L (98-107); Glucose 73 mg/dl (70-99); Potassium 4.4 mmol/L (3.5-5.1); Sodium 128 mmol/L (135-145); eGFR > 60.00
== END ==
LOC: OLABP 09:34
PROVIDERS: ATTENDING PHYSICIAN Family Medicine
DX: E87.1 Hypo-osmolality and hyponatremia (principal); K21.9 Gastro-esophageal reflux disease without esophagitis; K59.00 Constipation, unspecified; R09.02 Hypoxemia; J84.112 Idiopathic pulmonary fibrosis; E03.9 Hypothyroidism, unspecified; G40.909 Epilepsy, unspecified, not intractable, without status epilepticus
CPT/HCPCS: 36415; 80048; 85027

== ENCOUNTER → 2025-02-24 11:24 | Outpatient (REF) | payer OTHER, SELFPAY ==
[2025-02-24 11:37] LABS: Hematocrit 32.3 % (37.0-47.0); Hemoglobin 10.8 g/dL (12.0-16.0); Mean Corp Hgb Conc. 33.4 g/dL (33.0-37.0); Mean Corpuscular Volume 94.7 fL (81.0-99.0); Nucleated Red Blood Cells % 0 %; Platelet Count 318 10^3/uL (130-400); Red Cell Dist. Width 13.2 % (11.5-14.5)
[2025-02-24 11:45] LABS: Blood Urea Nitrogen 19 mg/dl (7-17); Calcium 9.1 mg/dl (8.4-10.2); Carbon Dioxide 25 mmol/L (22-30); Chloride 99 mmol/L (98-107); Glucose 71 mg/dl (70-99); Potassium 4.4 mmol/L (3.5-5.1); Sodium 131 mmol/L (135-145); eGFR > 60.00
== END ==
LOC: OLABP 11:24
PROVIDERS: ATTENDING PHYSICIAN Family Medicine
DX: E87.1 Hypo-osmolality and hyponatremia (principal); K21.9 Gastro-esophageal reflux disease without esophagitis; K59.00 Constipation, unspecified; R09.02 Hypoxemia; J84.112 Idiopathic pulmonary fibrosis; G40.909 Epilepsy, unspecified, not intractable, without status epilepticus; E03.9 Hypothyroidism, unspecified
CPT/HCPCS: 36415; 80048; 85025

== ENCOUNTER → 2025-03-01 11:40 | Outpatient (REF) | payer OTHER, SELFPAY ==
[2025-03-01 12:34] LABS: Hematocrit 31.4 % (37.0-47.0); Hemoglobin 10.4 g/dL (12.0-16.0); Mean Corp Hgb Conc. 33.1 g/dL (33.0-37.0); Mean Corpuscular Volume 96.3 fL (81.0-99.0); Platelet Count 302 10^3/uL (130-400); Red Cell Dist. Width 13.5 % (11.5-14.5)
[2025-03-01 12:53] LABS: Blood Urea Nitrogen 22 mg/dl (7-17); Calcium 8.8 mg/dl (8.4-10.2); Carbon Dioxide 25 mmol/L (22-30); Chloride 103 mmol/L (98-107); Glucose 68 mg/dl (70-99); Potassium 5.0 mmol/L (3.5-5.1); Sodium 132 mmol/L (135-145); eGFR > 60.00
== END ==
LOC: OLABP 11:40
PROVIDERS: ATTENDING PHYSICIAN Family Medicine
DX: E87.1 Hypo-osmolality and hyponatremia (principal); K21.9 Gastro-esophageal reflux disease without esophagitis; K59.00 Constipation, unspecified; R09.02 Hypoxemia; J84.112 Idiopathic pulmonary fibrosis; G40.909 Epilepsy, unspecified, not intractable, without status epilepticus; E03.9 Hypothyroidism, unspecified
CPT/HCPCS: 36415; 80048; 85027

== ENCOUNTER → 2025-03-08 12:58 | Outpatient (REF) | payer BC, OTHER, SELFPAY ==
[2025-03-08 13:19] LABS: Hematocrit 30.4 % (37.0-47.0); Hemoglobin 10.2 g/dL (12.0-16.0); Mean Corp Hgb Conc. 33.6 g/dL (33.0-37.0); Mean Corpuscular Volume 93.5 fL (81.0-99.0); Platelet Count 230 10^3/uL (130-400); Red Cell Dist. Width 13.4 % (11.5-14.5)
[2025-03-08 13:27] LABS: Blood Urea Nitrogen 16 mg/dl (7-17); Calcium 8.5 mg/dl (8.4-10.2); Carbon Dioxide 23 mmol/L (22-30); Chloride 100 mmol/L (98-107); Glucose 83 mg/dl (70-99); Potassium 4.8 mmol/L (3.5-5.1); Sodium 128 mmol/L (135-145); eGFR > 60.00
== END ==
LOC: OLABP 12:58
PROVIDERS: ATTENDING PHYSICIAN Family Medicine
DX: G40.909 Epilepsy, unspecified, not intractable, without status epilepticus (principal); E87.1 Hypo-osmolality and hyponatremia; K21.9 Gastro-esophageal reflux disease without esophagitis; K59.00 Constipation, unspecified; R09.02 Hypoxemia; J84.112 Idiopathic pulmonary fibrosis; S32.000D Wedge compression fracture of unspecified lumbar vertebra, subsequent encounter for fracture with routine healing; E03.9 Hypothyroidism, unspecified
CPT/HCPCS: 36415; 80048; 85027

== ENCOUNTER → 2025-03-10 11:11 | Outpatient (REF) | payer OTHER, SELFPAY ==
[2025-03-10 12:26] LABS: Blood Urea Nitrogen 15 mg/dl (7-17); Calcium 8.7 mg/dl (8.4-10.2); Carbon Dioxide 24 mmol/L (22-30); Chloride 104 mmol/L (98-107); Glucose 88 mg/dl (70-99); Potassium 4.4 mmol/L (3.5-5.1); Sodium 133 mmol/L (135-145); eGFR > 60.00
== END ==
LOC: OLABLV 11:11
PROVIDERS: ATTENDING PHYSICIAN Internal Medicine
DX: E87.1 Hypo-osmolality and hyponatremia (principal); K21.9 Gastro-esophageal reflux disease without esophagitis; K59.00 Constipation, unspecified; R09.02 Hypoxemia; J84.112 Idiopathic pulmonary fibrosis; G40.909 Epilepsy, unspecified, not intractable, without status epilepticus; E03.9 Hypothyroidism, unspecified
CPT/HCPCS: 36415; 80048